=== PATIENT | male | born 1960 | race Caucasian/White ===

== ENCOUNTER 2017-06-17 14:39 | Emergency (ER) | payer OTHER, MEDICAID ==
[~2017-06-17] VITALS: Ht 172.7 cm; Wt 83.9 kg
[2017-06-17 15:44] VITALS: BP 147/81
[2017-06-17] MEDS ORDERED: HYDROcodone-ACET 10/325MG TAB PO ONE (16:15)
== END 2017-06-17 16:55 | disposition home or self-care (01) ==
LOC: ER 14:39
DX: S90.31XA Contusion of right foot, initial encounter (principal); E11.42 Type 2 diabetes mellitus with diabetic polyneuropathy; I10 Essential (primary) hypertension; G89.4 Chronic pain syndrome; Z88.6 Allergy status to analgesic agent; W04.XXXA Fall while being carried or supported by other persons, initial encounter; Y93.89 Activity, other specified; Y92.89 Other specified places as the place of occurrence of the external cause; Y99.8 Other external cause status
CPT/HCPCS: 73630

== ENCOUNTER 2017-08-04 10:01 | Emergency (ER) | payer OTHER, MEDICAID ==
[~2017-08-04] VITALS: Ht 172.7 cm; Wt 83.9 kg
[2017-08-04 10:32] VITALS: BP 151/84
[2017-08-04] MEDS ORDERED: FLUORESCEIN SOD 1 MG TEST STRIP RIGHTEYE ONE (11:00)
[2017-08-04] MEDS ORDERED: TETRACAINE HCL 0.5% OPTH(EYE) SOLN 4ML RIGHTEYE ONE (11:00)
== END 2017-08-04 12:15 | disposition home or self-care (01) ==
LOC: ER 10:01
DX: J40 Bronchitis, not specified as acute or chronic (principal); L03.211 Cellulitis of face; J44.9 Chronic obstructive pulmonary disease, unspecified; M54.9 Dorsalgia, unspecified; I10 Essential (primary) hypertension; E11.9 Type 2 diabetes mellitus without complications
CPT/HCPCS: 71046

== ENCOUNTER 2017-08-07 17:46 | Emergency (ER) | payer OTHER, MEDICAID ==
[~2017-08-07] VITALS: Ht 172.7 cm; Wt 81.6 kg
[2017-08-07 17:56] VITALS: BP 145/80
[2017-08-07 19:29] LABS: Basophils # (auto) 0 uL; Basophils % (auto) 0.8 % (0.0-2.0); Eosinophils # (auto) 0.3 uL; Eosinophils % (auto) 7.1 % (0.0-7.0); Hematocrit 40.3 % (41.0-53.0); Hemoglobin 13.5 g/dL (13.5-17.5); Lymphocytes # (auto) 1.4 uL; Lymphocytes % (auto) 33.2 % (10.0-50.0); Mean Corpuscular Hemoglobin 30.7 pg (28.0-32.0); Mean Corpuscular Hgb Conc. 33.6 g/dL (32.0-36.0); Mean Corpuscular Volume 91.6 fL (80.0-100.0); Monocytes # (auto) 0.6 uL; Monocytes % (auto) 14.7 % (0.0-12.0); Neutrophils # (auto) 1.9 uL; Neutrophils % (auto) 44.2 % (37.0-80.0); Nucleated Red Blood Cells % 0.1 %; Platelet Count (auto) 180 10^3/uL (140-450); Red Cell Distribution Width 13.5 % (11.8-14.3); White Blood Cell 4.4 10^3/uL (4.4-10.8)
[2017-08-07 19:45] LABS: Alanine Aminotransferase 33 U/L (16-61); Albumin 3.9 g/dL (3.4-5.0); Alkaline Phosphatase 74 U/L (45-117); Anion Gap 8 (5-15); Aspartate Aminotransferase 26 U/L (15-37); BUN/Creatinine Ratio 8.6; Bilirubin, Total 0.3 mg/dL (0.2-1.0); Blood Urea Nitrogen 12 mg/dL (7-18); Calcium 8.3 mg/dL (8.5-10.1); Carbon Dioxide 28 mmol/L (21-32); Chloride 100 mmol/L (98-107); GFR African American 68 mL/min; GFR Non-African American 56 mL/min; Glucose 221 mg/dL (74-106); Potassium 3.7 mmol/L (3.5-5.1); Sodium 136 mmol/L (136-145); Total Protein 7.8 g/dL (6.4-8.2)
== END 2017-08-07 21:00 | disposition left against medical advice (07) ==
LOC: ER 17:51
DX: R06.02 Shortness of breath (principal); R05 Cough; Z53.21 Procedure and treatment not carried out due to patient leaving prior to being seen by health care provider
CPT/HCPCS: 36415; 71046; 80053; 84484; 85025; 93005

== ENCOUNTER 2017-10-12 14:53 | Emergency (ER) | payer OTHER, MEDICAID ==
[~2017-10-12] VITALS: Ht 172.7 cm; Wt 83.9 kg
[2017-10-12 18:28] VITALS: BP 145/82
== END 2017-10-12 18:37 | disposition home or self-care (01) ==
LOC: ER 14:56
DX: K42.9 Umbilical hernia without obstruction or gangrene (principal); G89.29 Other chronic pain; J44.9 Chronic obstructive pulmonary disease, unspecified; E11.9 Type 2 diabetes mellitus without complications; I10 Essential (primary) hypertension; Z88.8 Allergy status to other drugs, medicaments and biological substances
CPT/HCPCS: 74176

== ENCOUNTER 2017-12-12 00:38 | Emergency (ER) | payer OTHER, MEDICAID ==
[~2017-12-12] VITALS: Ht 172.7 cm; Wt 68.0 kg
[2017-12-12 01:40] LABS: Alcohol, Urine < 3.0 mg/dL (0-5); Amphetamine Screen, Urine NEGATIVE (NEGATIVE); Barbiturate Scree,Urine NEGATIVE (NEGATIVE); Benzodiazephine Screen, Urine NEGATIVE (NEGATIVE); Cannabinoid Screen, Urine NEGATIVE (NEGATIVE); Cocaine Screen, Urine NEGATIVE (NEGATIVE); Opiate Scree,Urine POSITIVE (NEGATIVE); Phencyclidine Screen, Urine NEGATIVE (NEGATIVE)
[2017-12-12 03:10] LABS: Urine Bacteria FEW /hpf (None Seen); Urine Blood 1+ /uL (Negative); Urine Specific Gravity 1.006 (1.001-1.035); Urine WBC <1 /hpf (0 - 3)
[2017-12-12 03:55] VITALS: BP 127/78
== END 2017-12-12 05:05 | disposition home or self-care (01) ==
LOC: ER 00:38
DX: R33.9 Retention of urine, unspecified (principal); E11.9 Type 2 diabetes mellitus without complications; I10 Essential (primary) hypertension; J44.9 Chronic obstructive pulmonary disease, unspecified; Z88.8 Allergy status to other drugs, medicaments and biological substances
CPT/HCPCS: 51702; 80307; 81001

== ENCOUNTER 2018-03-11 02:16 | Inpatient (IN) | payer OTHER, MEDICAID ==
[~2018-03-11] VITALS: Ht 182.9 cm; Wt 81.6 kg
[2018-03-11 06:19] LABS: Basophils # (auto) 0.1 uL; Basophils % (auto) 0.3 % (0.0-2.0); Eosinophils # (auto) 0 uL; Eosinophils % (auto) 0.1 % (0.0-7.0); Hematocrit 48.6 % (41.0-53.0); Hemoglobin 16.6 g/dL (13.5-17.5); Lymphocytes % (auto) 6.1 % (10.0-50.0); Mean Corpuscular Hemoglobin 31.1 pg (28.0-32.0); Mean Corpuscular Hgb Conc. 34.2 g/dL (32.0-36.0); Monocytes # (auto) 0.7 uL; Monocytes % (auto) 4.1 % (0.0-12.0); Neutrophils # (auto) 15.4 uL; Neutrophils % (auto) 89.4 % (37.0-80.0); Platelet Count (auto) 241 10^3/uL (140-450); Red Blood Cells 5.34 10^6/uL (4.5-5.90); Red Cell Distribution Width 13.1 % (11.8-14.3); White Blood Cell 17.2 10^3/uL (4.4-10.8)
[2018-03-11 06:29] LABS: Alanine Aminotransferase 28 U/L (16-61); Albumin 4.5 g/dL (3.4-5.0); Amylase 48 U/L (25-115); Anion Gap 12 (5-15); Aspartate Aminotransferase 14 U/L (15-37); BUN/Creatinine Ratio 6.3; Blood Urea Nitrogen 12 mg/dL (7-18); Calcium 10.3 mg/dL (8.5-10.1); Carbon Dioxide 25 mmol/L (21-32); Chloride 100 mmol/L (98-107); GFR African American 47 mL/min; GFR Non-African American 39 mL/min; Glucose 381 mg/dL (74-106); Lipase 95 U/L (73-393); Potassium 3.8 mmol/L (3.5-5.1); Sodium 137 mmol/L (136-145)
[2018-03-11 06:34] LABS: Alkaline Phosphatase 80 U/L (45-117); Bilirubin, Total 0.7 mg/dL (0.2-1.0); Total Protein 8.7 g/dL (6.4-8.2)
[2018-03-11] MEDS ORDERED: SODIUM CHLORIDE 0.9% 1,000 ML IVB ONE (07:15)
[2018-03-11] MEDS ORDERED: PROMETHAZINE HCL 25 MG/ML 1ML IV PRN ×2 (07:15→14:00)
[2018-03-11] MEDS ORDERED: MORPHINE SULFATE 4 MG/ML SYR/VIAL IV ONE (07:15)
[2018-03-11 08:57] LABS: Urine Bacteria NONE SEEN /hpf (None Seen); Urine Blood Negative /uL (Negative); Urine Mucus FEW (None Seen); Urine WBC 2 /hpf (0 - 3)
[2018-03-11 09:01] LABS: Alcohol, Urine < 3.0 mg/dL (0-5); Amphetamine Screen, Urine NEGATIVE (NEGATIVE); Barbiturate Scree,Urine NEGATIVE (NEGATIVE); Benzodiazephine Screen, Urine NEGATIVE (NEGATIVE); Cannabinoid Screen, Urine NEGATIVE (NEGATIVE); Cocaine Screen, Urine NEGATIVE (NEGATIVE); Opiate Scree,Urine POSITIVE (NEGATIVE); Phencyclidine Screen, Urine NEGATIVE (NEGATIVE)
[2018-03-11] MEDS ORDERED: SODIUM CHLORIDE 0.9% 1,000 ML IV ONE (12:30)
[2018-03-11] MEDS ORDERED: DEXTROSE (50%) 50ML SYRG IV PRN (14:00)
[2018-03-11] MEDS ORDERED: cefTRIAXone 1GM/10ml IVPUSH 10 ML IV ONE (14:00)
[2018-03-11] MEDS ORDERED: SODIUM CHLORIDE 0.9% 2,000 ML IV ONE (14:00)
[2018-03-11] MEDS ORDERED: NITROGLYCERIN 0.4 MG SL TAB SL PRN (14:15)
[2018-03-11] MEDS ORDERED: TEMAZEPAM 15 MG CAP PO PRN (14:15)
[2018-03-11] MEDS ORDERED: ACETAMINOPHEN 325 MG TAB PO PRN (14:15)
[2018-03-11] MEDS ORDERED: MORPHINE SULF INJ 2 MG/ML SYRINGE 1ML IV PRN (14:15)
[2018-03-11] MEDS ORDERED: PANTOPRAZOLE 40 MG/10 ML VIAL IV ONE (14:15)
[2018-03-11] MEDS: CYCLOBENZAPRINE HCL 10 MG TAB PO SCH ×2 (14:32→21:53)
[2018-03-11] MEDS: MORPHINE SULF 30 mg ER tab PO SCH ×2 (14:32→21:54)
[2018-03-11] MEDS: metroNIDAZOLE 500MG/100ML 100 ML IV SCH ×2 (14:34→21:53)
[2018-03-11] MEDS: MULTIPLE VITAMIN TAB PO SCH (14:56)
[2018-03-11 15:19] LABS: Lactic Acid w/Reflex 2.7 mmol/L (0.4-2.0)
[2018-03-11] MEDS: MORPHINE SULF INJ 2 MG/ML SYRINGE 1ML IV PRN (15:27)
[2018-03-11] MEDS: SODIUM CHLORIDE 0.9% 1,000 ML IV SCH ×2 (16:52→22:29)
[2018-03-11] MEDS: ACCU-CHEK COMFORT CURVE STRIP VI SCH ×2 (17:06→22:28)
[2018-03-11] MEDS: InsuLIN REG 1unit/0.01ml Soln (100units/ml) SC SCH ×2 (17:10→22:28)
[2018-03-11] MEDS: GABAPENTIN 300 MG CAP PO SCH ×2 (18:22→21:53)
[2018-03-11 20:23] VITALS: BP 119/71
[2018-03-11] MEDS: FAMOTIDINE 20 MG TAB PO SCH (21:53)
[2018-03-12 05:10] VITALS: BP 117/71
[2018-03-12 06:32] LABS: Basophils # (auto) 0 uL; Basophils % (auto) 0.5 % (0.0-2.0); Eosinophils # (auto) 0.6 uL; Eosinophils % (auto) 6.2 % (0.0-7.0); Hematocrit 33.7 % (41.0-53.0); Lymphocytes % (auto) 29.7 % (10.0-50.0); Mean Corpuscular Hemoglobin 32.4 pg (28.0-32.0); Mean Corpuscular Hgb Conc. 35.6 g/dL (32.0-36.0); Mean Corpuscular Volume 90.9 fL (80.0-100.0); Monocytes # (auto) 0.7 uL; Monocytes % (auto) 6.6 % (0.0-12.0); Neutrophils # (auto) 5.7 uL; Nucleated Red Blood Cells % 0.1 %; Platelet Count (auto) 166 10^3/uL (140-450); Red Blood Cells 3.71 10^6/uL (4.5-5.90); Red Cell Distribution Width 13.1 % (11.8-14.3); White Blood Cell 10.1 10^3/uL (4.4-10.8)
[2018-03-12] MEDS: metroNIDAZOLE 500MG/100ML 100 ML IV SCH ×3 (06:49→22:48)
[2018-03-12] MEDS: CYCLOBENZAPRINE HCL 10 MG TAB PO SCH ×3 (06:49→22:00)
[2018-03-12] MEDS: GABAPENTIN 300 MG CAP PO SCH ×4 (06:50→22:00)
[2018-03-12] MEDS: SODIUM CHLORIDE 0.9% 1,000 ML IV SCH ×3 (06:50→23:26)
[2018-03-12] MEDS: InsuLIN REG 1unit/0.01ml Soln (100units/ml) SC SCH ×4 (06:50→23:35)
[2018-03-12] MEDS: ACCU-CHEK COMFORT CURVE STRIP VI SCH ×4 (06:51→23:36)
[2018-03-12] MEDS: HYDROcodone-ACET 10/325MG TAB PO PRN ×2 (06:52→13:52)
[2018-03-12 07:08] LABS: Albumin 2.9 g/dL (3.4-5.0); BUN/Creatinine Ratio 9.9; Bilirubin, Total 0.5 mg/dL (0.2-1.0); Calcium 7.5 mg/dL (8.5-10.1); Potassium 3.4 mmol/L (3.5-5.1); Total Protein 5.6 g/dL (6.4-8.2)
[2018-03-12] MEDS: cefTRIAXone 1GM/10ml IVPUSH 10 ML IV SCH (08:54)
[2018-03-12] MEDS: MULTIPLE VITAMIN TAB PO SCH (08:54)
[2018-03-12] MEDS: PANTOPRAZOLE 40 MG/10 ML VIAL IV SCH (08:54)
[2018-03-12] MEDS: MORPHINE SULF INJ 2 MG/ML SYRINGE 1ML IV PRN ×4 (08:54→22:48)
[2018-03-12 09:00] VITALS: BP 115/71
[2018-03-12] MEDS: MORPHINE SULF 30 mg ER tab PO SCH ×2 (10:00→22:00)
[2018-03-12] MEDS: FAMOTIDINE 20 MG TAB PO SCH ×2 (10:00→22:48)
[2018-03-12] MEDS ORDERED: MORP30TA PO (12:44)
[2018-03-12] MEDS ORDERED: CYCL7.5T15 PO (12:44)
[2018-03-12] MEDS ORDERED: GABA-339 PO (12:44)
[2018-03-12] MEDS ORDERED: HYDR-4683 PO (12:44)
[2018-03-12 13:00] VITALS: BP 130/74
[2018-03-12 15:58] LABS: INR 1.19 (0.9-1.15); Partial Thromboplastin Time 23.1 sec (23.78-33.04); Prothrombin Time 12.6 sec (9.27-12.13)
[2018-03-12] MEDS ORDERED: MAGNESIUM CITRATE SOLUTION 300 ML BTL PO ONE (17:15)
[2018-03-12 17:36] VITALS: BP 128/77
[2018-03-12] MEDS: ONDANSETRON HCL 4 MG/2 ML VIAL IV PRN ×2 (18:26→22:48)
[2018-03-12 22:30] VITALS: BP 143/80
[2018-03-13] MEDS: MORPHINE SULF INJ 2 MG/ML SYRINGE 1ML IV PRN ×4 (02:31→23:33)
[2018-03-13] MEDS: ONDANSETRON HCL 4 MG/2 ML VIAL IV PRN (02:32)
[2018-03-13 05:44] VITALS: BP 135/75
[2018-03-13] MEDS: GABAPENTIN 300 MG CAP PO SCH ×4 (06:00→23:08)
[2018-03-13] MEDS: CYCLOBENZAPRINE HCL 10 MG TAB PO SCH ×3 (06:00→23:02)
[2018-03-13] MEDS: ACCU-CHEK COMFORT CURVE STRIP VI SCH ×4 (06:39→22:00)
[2018-03-13] MEDS: metroNIDAZOLE 500MG/100ML 100 ML IV SCH ×3 (06:39→23:02)
[2018-03-13] MEDS: InsuLIN REG 1unit/0.01ml Soln (100units/ml) SC SCH ×4 (06:40→22:00)
[2018-03-13] MEDS: SODIUM CHLORIDE 0.9% 1,000 ML IV SCH ×2 (07:46→14:43)
[2018-03-13] MEDS ORDERED: MIDAZOLAM HCL 1MG/1ML-2 ML VIAL ONE (08:36)
[2018-03-13] MEDS ORDERED: PROPOFOL 10 MG/ML 20 ML IV ONE (08:37)
[2018-03-13] MEDS ORDERED: LIDOCAINE 2% (LOCAL ANESTH.) PF 5ml SDV ONE (08:38)
[2018-03-13] MEDS ORDERED: fentaNYL CITRATE 100 MCG/2 ML VL ONE (08:39)
[2018-03-13 09:00] VITALS: BP 152/81
[2018-03-13] MEDS: cefTRIAXone 1GM/10ml IVPUSH 10 ML IV SCH (10:33)
[2018-03-13] MEDS: PANTOPRAZOLE 40 MG/10 ML VIAL IV SCH (10:33)
[2018-03-13] MEDS: MULTIPLE VITAMIN TAB PO SCH (10:34)
[2018-03-13] MEDS: MORPHINE SULF 30 mg ER tab PO SCH ×2 (10:34→23:03)
[2018-03-13] MEDS: HYDROcodone-ACET 10/325MG TAB PO PRN (12:18)
[2018-03-13 13:00] VITALS: BP 131/79
[2018-03-13 18:05] VITALS: BP 112/84
[2018-03-13 22:00] VITALS: BP 122/89
[2018-03-14] MEDS: SODIUM CHLORIDE 0.9% 1,000 ML IV SCH ×2 (00:09→08:46)
[2018-03-14 04:42] VITALS: BP 124/76
[2018-03-14] MEDS: GABAPENTIN 300 MG CAP PO SCH ×2 (05:27→11:58)
[2018-03-14] MEDS: metroNIDAZOLE 500MG/100ML 100 ML IV SCH ×2 (05:28→13:26)
[2018-03-14] MEDS: CYCLOBENZAPRINE HCL 10 MG TAB PO SCH ×2 (05:28→14:17)
[2018-03-14] MEDS: MORPHINE SULF INJ 2 MG/ML SYRINGE 1ML IV PRN ×2 (05:30→12:20)
[2018-03-14] MEDS: ACCU-CHEK COMFORT CURVE STRIP VI SCH ×2 (06:28→12:19)
[2018-03-14] MEDS: InsuLIN REG 1unit/0.01ml Soln (100units/ml) SC SCH ×2 (06:30→12:20)
[2018-03-14 06:55] LABS: Basophils # (auto) 0 uL; Basophils % (auto) 0.5 % (0.0-2.0); Eosinophils # (auto) 0.7 uL; Eosinophils % (auto) 8.1 % (0.0-7.0); Hematocrit 33.4 % (41.0-53.0); Hemoglobin 11.6 g/dL (13.5-17.5); Lymphocytes # (auto) 2.6 uL; Lymphocytes % (auto) 30.5 % (10.0-50.0); Mean Corpuscular Hemoglobin 31.7 pg (28.0-32.0); Mean Corpuscular Hgb Conc. 34.6 g/dL (32.0-36.0); Mean Corpuscular Volume 91.4 fL (80.0-100.0); Monocytes # (auto) 0.6 uL; Monocytes % (auto) 7.3 % (0.0-12.0); Neutrophils # (auto) 4.6 uL; Neutrophils % (auto) 53.6 % (37.0-80.0); Nucleated Red Blood Cells % 0.1 %; Platelet Count (auto) 167 10^3/uL (140-450); Red Blood Cells 3.65 10^6/uL (4.5-5.90); Red Cell Distribution Width 13.3 % (11.8-14.3); White Blood Cell 8.7 10^3/uL (4.4-10.8)
[2018-03-14 07:35] LABS: Albumin 2.8 g/dL (3.4-5.0); BUN/Creatinine Ratio 5.6; Bilirubin, Total 0.4 mg/dL (0.2-1.0); Calcium 7.5 mg/dL (8.5-10.1); Potassium 3.3 mmol/L (3.5-5.1); Total Protein 5.3 g/dL (6.4-8.2)
[2018-03-14] MEDS: HYDROcodone-ACET 10/325MG TAB PO PRN ×2 (08:39→14:17)
[2018-03-14] MEDS: cefTRIAXone 1GM/10ml IVPUSH 10 ML IV SCH (08:39)
[2018-03-14 09:00] VITALS: BP 146/71
[2018-03-14] MEDS: PANTOPRAZOLE 40 MG/10 ML VIAL IV SCH (10:28)
[2018-03-14] MEDS: MULTIPLE VITAMIN TAB PO SCH (10:29)
[2018-03-14] MEDS: MORPHINE SULF 30 mg ER tab PO SCH (10:31)
[2018-03-14 13:00] VITALS: BP 144/86
== END 2018-03-14 16:00 | disposition home or self-care (01) | DRG 871 ==
LOC: EDBD 02:16 → ER 02:25 → TELE 02:26 → TELE-EAST 20:23
PROVIDERS: ADMIT Internal Medicine; ATTEND Family Medicine
PROC: 0DBB8ZX Excision of Ileum, Via Natural or Artificial Opening Endoscopic, Diagnostic (ICD-10-PCS; 2018-03-13)
PROC: 0DBC8ZX Excision of Ileocecal Valve, Via Natural or Artificial Opening Endoscopic, Diagnostic (ICD-10-PCS; principal; 2018-03-13 08:32)
DX: A41.9 Sepsis, unspecified organism (principal); N17.0 Acute kidney failure with tubular necrosis; A05.9 Bacterial foodborne intoxication, unspecified; J44.9 Chronic obstructive pulmonary disease, unspecified; I12.9 Hypertensive chronic kidney disease with stage 1 through stage 4 chronic kidney disease, or unspecified chronic kidney disease; E86.0 Dehydration; E11.21 Type 2 diabetes mellitus with diabetic nephropathy; E11.22 Type 2 diabetes mellitus with diabetic chronic kidney disease; E83.52 Hypercalcemia; F17.210 Nicotine dependence, cigarettes, uncomplicated; G89.4 Chronic pain syndrome; N18.2 Chronic kidney disease, stage 2 (mild); I25.10 Atherosclerotic heart disease of native coronary artery without angina pectoris; K21.9 Gastro-esophageal reflux disease without esophagitis; Z82.49 Family history of ischemic heart disease and other diseases of the circulatory system; Z83.3 Family history of diabetes mellitus; Z91.14 Patient's other noncompliance with medication regimen; Z88.8 Allergy status to other drugs, medicaments and biological substances
CPT/HCPCS: 36415; 45380; 71045; 74176; 76705; 76870; 80053; 80307; 81001; 82150; 82962; 83036; 83605; 83690; 83735; 84443; 84484; 85025; 85610; 85730; 87040; 87045; 87493; 87899; 93005; 96361; 96365; 96366; 96375; 96376; C9113; J0696; J1815; J2001; J2250; J2405; J2704; J3490

== ENCOUNTER 2018-03-18 12:38 | Inpatient (IN) | payer OTHER, MEDICAID ==
[~2018-03-18] VITALS: Ht 172.7 cm; Wt 80.6 kg
[~2018-03-18 12:38] MED LIST: CYCL7.5T15 PO; GABA-339 PO; HYDR-4683 PO; MORP30TA PO
[2018-03-18] MEDS ORDERED: SODIUM CHLORIDE 0.9% 1,000 ML IV ONE (14:15)
[2018-03-18] MEDS ORDERED: PROMETHAZINE HCL 25 MG/ML 1ML IV PRN (14:15)
[2018-03-18 14:21] LABS: Basophils # (auto) 0.1 uL; Basophils % (auto) 0.6 % (0.0-2.0); Eosinophils # (auto) 0.1 uL; Eosinophils % (auto) 0.5 % (0.0-7.0); Hematocrit 43.8 % (41.0-53.0); Hemoglobin 15.1 g/dL (13.5-17.5); Lymphocytes # (auto) 1.5 uL; Mean Corpuscular Hemoglobin 31.5 pg (28.0-32.0); Mean Corpuscular Hgb Conc. 34.5 g/dL (32.0-36.0); Mean Corpuscular Volume 91.2 fL (80.0-100.0); Monocytes # (auto) 0.7 uL; Monocytes % (auto) 5.8 % (0.0-12.0); Neutrophils # (auto) 9.2 uL; Neutrophils % (auto) 80.1 % (37.0-80.0); Platelet Count (auto) 235 10^3/uL (140-450); Red Blood Cells 4.81 10^6/uL (4.5-5.90); Red Cell Distribution Width 13.4 % (11.8-14.3); White Blood Cell 11.5 10^3/uL (4.4-10.8)
[2018-03-18 14:46] LABS: Amylase 63 U/L (25-115); Lipase 125 U/L (73-393)
[2018-03-18 15:06] LABS: Alanine Aminotransferase 36 U/L (16-61); Albumin 3.7 g/dL (3.4-5.0); Alkaline Phosphatase 54 U/L (45-117); Anion Gap 4 (5-15); Aspartate Aminotransferase 18 U/L (15-37); BUN/Creatinine Ratio 7.8; Bilirubin, Total 0.5 mg/dL (0.2-1.0); Blood Urea Nitrogen 8 mg/dL (7-18); Calcium 8.7 mg/dL (8.5-10.1); Carbon Dioxide 25 mmol/L (21-32); Chloride 107 mmol/L (98-107); GFR African American 97 mL/min; GFR Non-African American 80 mL/min; Glucose 195 mg/dL (74-106); Magnesium 2.1 mg/dL (1.6-2.6); Potassium 3.8 mmol/L (3.5-5.1); Sodium 136 mmol/L (136-145)
[2018-03-18] MEDS ORDERED: metroNIDAZOLE 500MG/100ML 100 ML IV ONE (15:30)
[2018-03-18] MEDS ORDERED: ONDANSETRON HCL 4 MG/2 ML VIAL IV ONE ×2 (15:30→18:15)
[2018-03-18] MEDS ORDERED: MORPHINE SULF INJ 2 MG/ML SYRINGE 1ML ONE (15:30)
[2018-03-18] MEDS ORDERED: MORPHINE SULF INJ 2 MG/ML SYRINGE 1ML IV ONE ×2 (15:30→18:15)
[2018-03-18] MEDS ORDERED: ONDANSETRON HCL 4 MG/2 ML VIAL ONE (15:31)
[2018-03-18] MEDS ORDERED: SODIUM CHLORIDE 0.9% 2,000 ML IV ONE (18:15)
[2018-03-19] MEDS ORDERED: ALBUTEROL SULF 2.5 MG/0.5ML(0.5%) NEB SOLN NEB PRN (00:15)
[2018-03-19] MEDS ORDERED: IPRATROPIUM BROM 0.5 MG/2.5ML INH SOL NEB PRN (00:15)
[2018-03-19] MEDS ORDERED: DEXTROSE (50%) 50ML SYRG IV PRN (00:15)
[2018-03-19] MEDS ORDERED: SOD CHL 0.45% 1,000 ML IV ONE (00:15)
[2018-03-19] MEDS: MORPHINE SULF INJ 2 MG/ML SYRINGE 1ML IV PRN ×5 (00:46→20:30)
[2018-03-19] MEDS: ONDANSETRON HCL 4 MG/2 ML VIAL IV PRN ×3 (00:46→18:16)
[2018-03-19 00:58] VITALS: BP 149/88
[2018-03-19 02:00] VITALS: BP 144/80
[2018-03-19 04:53] VITALS: BP 148/86
[2018-03-19] MEDS: InsuLIN REG 1unit/0.01ml Soln (100units/ml) SC SCH ×3 (05:02→17:44)
[2018-03-19] MEDS: ACCU-CHEK COMFORT CURVE STRIP VI SCH ×3 (05:02→17:45)
[2018-03-19] MEDS: metroNIDAZOLE 500MG/100ML 100 ML IV SCH ×2 (05:02→14:32)
[2018-03-19 06:32] LABS: Basophils # (auto) 0 uL; Basophils % (auto) 0.3 % (0.0-2.0); Eosinophils # (auto) 0.5 uL; Hematocrit 37.1 % (41.0-53.0); Hemoglobin 12.7 g/dL (13.5-17.5); Lymphocytes % (auto) 20.6 % (10.0-50.0); Mean Corpuscular Hemoglobin 31.5 pg (28.0-32.0); Mean Corpuscular Hgb Conc. 34.1 g/dL (32.0-36.0); Mean Corpuscular Volume 92.2 fL (80.0-100.0); Monocytes # (auto) 0.8 uL; Neutrophils # (auto) 6.4 uL; Neutrophils % (auto) 66.1 % (37.0-80.0); Platelet Count (auto) 210 10^3/uL (140-450); Red Blood Cells 4.03 10^6/uL (4.5-5.90); Red Cell Distribution Width 13.3 % (11.8-14.3); White Blood Cell 9.7 10^3/uL (4.4-10.8)
[2018-03-19 06:37] LABS: INR 1.21 (0.9-1.15); Prothrombin Time 12.8 sec (9.27-12.13)
[2018-03-19 06:58] LABS: Albumin 3.1 g/dL (3.4-5.0); BUN/Creatinine Ratio 9.5; Bilirubin, Total 0.5 mg/dL (0.2-1.0); Calcium 7.7 mg/dL (8.5-10.1); Potassium 3.6 mmol/L (3.5-5.1); Total Protein 5.8 g/dL (6.4-8.2)
[2018-03-19 07:55] VITALS: BP 150/81
[2018-03-19] MEDS ORDERED: CIPROFLOXACIN 400MG/200ML 200 ML IV SCH (10:00)
[2018-03-19 11:05] LABS: Urine Bacteria NONE SEEN /hpf (None Seen); Urine Blood Negative /uL (Negative); Urine Specific Gravity 1.015 (1.001-1.035); Urine WBC 1 /hpf (0 - 3)
[2018-03-19 12:21] VITALS: BP 136/82
[2018-03-19 17:06] VITALS: BP 143/83
[2018-03-19] MEDS ORDERED: HYDROcodone-ACET 10/325MG TAB PO PRN (18:15)
== END 2018-03-19 21:07 | disposition short-term general hospital (02) | DRG 392 ==
LOC: EDBD 12:38 → ER 12:39 → EAST 12:40
PROVIDERS: ADMIT Internal Medicine; ATTEND Internal Medicine
DX: K52.9 Noninfective gastroenteritis and colitis, unspecified (principal); K50.90 Crohn's disease, unspecified, without complications; I10 Essential (primary) hypertension; J44.9 Chronic obstructive pulmonary disease, unspecified; G89.4 Chronic pain syndrome; F41.9 Anxiety disorder, unspecified; F17.210 Nicotine dependence, cigarettes, uncomplicated; E66.9 Obesity, unspecified; K42.9 Umbilical hernia without obstruction or gangrene; E11.9 Type 2 diabetes mellitus without complications; M54.9 Dorsalgia, unspecified; Z82.49 Family history of ischemic heart disease and other diseases of the circulatory system; Z91.19 Patient's noncompliance with other medical treatment and regimen; Z88.8 Allergy status to other drugs, medicaments and biological substances; Z68.27 Body mass index [BMI] 27.0-27.9, adult
CPT/HCPCS: 36415; 71045; 74176; 80053; 81001; 82150; 82962; 83036; 83690; 83735; 84484; 85025; 85610; 85652; 86141; 86256; 86671; 87081; 93005; 94761; 96361; 96365; 96375; J2405; J3490

== ENCOUNTER 2018-08-05 14:33 | Emergency (ER) | payer OTHER, MEDICAID ==
[~2018-08-05] VITALS: Ht 175.3 cm; Wt 83.9 kg
[2018-08-05 15:42] LABS: Basophils # (auto) 0 uL; Basophils % (auto) 0.5 % (0.0-2.0); Eosinophils # (auto) 0.1 uL; Eosinophils % (auto) 0.7 % (0.0-7.0); Hematocrit 43.5 % (41.0-53.0); Hemoglobin 15.2 g/dL (13.5-17.5); Lymphocytes # (auto) 2.2 uL; Lymphocytes % (auto) 24.8 % (10.0-50.0); Mean Corpuscular Hemoglobin 31.6 pg (28.0-32.0); Mean Corpuscular Hgb Conc. 34.9 g/dL (32.0-36.0); Mean Corpuscular Volume 90.5 fL (80.0-100.0); Monocytes # (auto) 0.6 uL; Monocytes % (auto) 6.5 % (0.0-12.0); Neutrophils % (auto) 67.5 % (37.0-80.0); Platelet Count (auto) 239 10^3/uL (140-450); Red Blood Cells 4.81 10^6/uL (4.5-5.90); Red Cell Distribution Width 12.8 % (11.8-14.3); White Blood Cell 8.9 10^3/uL (4.4-10.8)
[2018-08-05 15:54] LABS: Chloride 104 mmol/L (98-107); Potassium 3.8 mmol/L (3.5-5.1); Sodium 138 mmol/L (136-145)
[2018-08-05 16:03] LABS: Alanine Aminotransferase 21 U/L (16-61); Albumin 4.2 g/dL (3.4-5.0); Alkaline Phosphatase 78 U/L (45-117); Amylase 42 U/L (25-115); Anion Gap 9 (5-15); Aspartate Aminotransferase 9 U/L (15-37); Bilirubin, Total 0.5 mg/dL (0.2-1.0); Blood Urea Nitrogen 9 mg/dL (7-18); Calcium 9.1 mg/dL (8.5-10.1); Carbon Dioxide 25 mmol/L (21-32); GFR African American 87 mL/min; GFR Non-African American 72 mL/min; Glucose 258 mg/dL (74-106); Lipase 56 U/L (73-393); Total Protein 8.1 g/dL (6.4-8.2)
[2018-08-06] MEDS ORDERED: MORPHINE SULFATE 4 MG/ML SYR/VIAL IV ONE (03:30)
[2018-08-06] MEDS ORDERED: ONDANSETRON HCL 4 MG/2 ML VIAL IV ONE (03:30)
[2018-08-06 03:47] VITALS: BP 137/94
[2018-08-06 05:32] LABS: Urine Bacteria FEW /hpf (None Seen); Urine Blood Negative /uL (Negative); Urine Specific Gravity 1.021 (1.001-1.035); Urine WBC 1 /hpf (0 - 3)
== END 2018-08-06 04:47 | disposition home or self-care (01) ==
LOC: EDBD 14:33 → ER 14:35
DX: K52.9 Noninfective gastroenteritis and colitis, unspecified (principal); J44.9 Chronic obstructive pulmonary disease, unspecified; E11.9 Type 2 diabetes mellitus without complications; I10 Essential (primary) hypertension; F17.210 Nicotine dependence, cigarettes, uncomplicated; Z88.6 Allergy status to analgesic agent; Z79.899 Other long term (current) drug therapy
CPT/HCPCS: 36415; 74176; 80053; 81001; 82150; 83690; 84484; 85025; 93005; 96374; 96375; 99284; J2270; J2405

== ENCOUNTER 2019-10-07 02:50 | Inpatient (IN) | payer OTHER, MEDICAID ==
[~2019-10-07] VITALS: Ht 172.7 cm; Wt 78.2 kg
[~2019-10-07 02:50] MED LIST changes: -HYDR-4683 PO; +HYDR-4833 PO
[2019-10-07] MEDS ORDERED: ONDANSETRON HCL 4 MG/2 ML VIAL ONE (03:04)
[2019-10-07] MEDS ORDERED: MORPHINE SULFATE 4 MG/ML SYR/VIAL ONE (03:04)
[2019-10-07] MEDS ORDERED: MORPHINE SULFATE 4 MG/ML SYR/VIAL IV ONE ×3 (03:15→03:30)
[2019-10-07] MEDS ORDERED: ASPirin 81 mg TAB PO ONE ×2 (03:15→03:30)
[2019-10-07] MEDS ORDERED: ONDANSETRON HCL 4 MG/2 ML VIAL IV ONE (03:15)
[2019-10-07 03:24] LABS: Basophils # (auto) 0.1 10 ^3/uL (0-0.2); Eosinophils # (auto) 0.5 10 ^3/uL (0-0.8); Eosinophils % (auto) 7.8 % (0.0-7.0); Hematocrit 37.8 % (41.0-53.0); Lymphocytes # (auto) 2.2 10 ^3/uL (0.4-5.4); Lymphocytes % (auto) 33.1 % (10.0-50.0); Mean Corpuscular Hemoglobin 31.4 pg (28.0-32.0); Mean Corpuscular Hgb Conc. 34.4 g/dL (32.0-36.0); Mean Corpuscular Volume 91.3 fL (80.0-100.0); Monocytes # (auto) 0.6 10 ^3/uL (0-1.3); Monocytes % (auto) 8.7 % (0.0-12.0); Neutrophils # (auto) 3.3 10 ^3/uL (1.6-8.6); Neutrophils % (auto) 49.4 % (37.0-80.0); Platelet Count (auto) 204 10^3/uL (140-450); Red Blood Cells 4.14 10^6/uL (4.5-5.90); Red Cell Distribution Width 13.2 % (11.8-14.3); White Blood Cell 6.7 10^3/uL (4.4-10.8)
[2019-10-07] MEDS ORDERED: ATORVASTATIN 20 MG TAB PO ONE (03:30)
[2019-10-07] MEDS ORDERED: METOPROLOL TARTRATE 1MG/1ML-5ML VIAL IV ONE (03:30)
[2019-10-07] MEDS ORDERED: HEPARIN 1,000 UNITS/ml 1ML VIAL IV ONE (03:30)
[2019-10-07 03:34] LABS: Urine WBC None Seen /hpf (0 - 3)
[2019-10-07 03:43] LABS: Alanine Aminotransferase 20 U/L (16-61); Albumin 3.6 g/dL (3.4-5.0); Anion Gap 6 (5-15); Blood Urea Nitrogen 10 mg/dL (7-18); Calcium 8.4 mg/dL (8.5-10.1); Carbon Dioxide 28 mmol/L (21-32); Chloride 100 mmol/L (98-107); Potassium 4.1 mmol/L (3.5-5.1); Sodium 134 mmol/L (136-145)
[2019-10-07 03:44] LABS: Urine Bacteria NONE SEEN /hpf (None Seen); Urine Blood Negative /uL (Negative); Urine Specific Gravity 1.016 (1.001-1.035)
[2019-10-07 03:48] LABS: Alkaline Phosphatase 72 U/L (45-117); Aspartate Aminotransferase 13 U/L (15-37); BUN/Creatinine Ratio 8.7; Bilirubin, Total 0.2 mg/dL (0.2-1.0); GFR African American 84 mL/min; GFR Non-African American 69 mL/min; Total Protein 6.9 g/dL (6.4-8.2)
[2019-10-07 03:56] LABS: Glucose 406 mg/dL (74-106)
[2019-10-07] MEDS ORDERED: HEPARIN SODIUM (PORCINE) 5000 UNITS/ML 1ML VIAL ONE (04:07)
[2019-10-07] MEDS ORDERED: CLOPIDOGREL BISULFATE 75 MG TAB PO ONE ×3 (04:15→08:30)
[2019-10-07 04:16] LABS: INR 1.08 (0.9-1.15); Partial Thromboplastin Time 25.3 sec (23.64-32.05)
[2019-10-07] MEDS ORDERED: SODIUM CHLORIDE 0.9% 500 ML IV ONE (04:30)
[2019-10-07] MEDS ORDERED: InsuLIN REG 1unit/0.01ml Soln (100units/ml) IV ONE (04:30)
[2019-10-07 05:14] LABS: Amphetamine Screen, Urine NEGATIVE (NEGATIVE); Barbiturate Scree,Urine NEGATIVE (NEGATIVE); Benzodiazephine Screen, Urine NEGATIVE (NEGATIVE); Cannabinoid Screen, Urine NEGATIVE (NEGATIVE); Cocaine Screen, Urine NEGATIVE (NEGATIVE); Opiate Scree,Urine POSITIVE (NEGATIVE); Phencyclidine Screen, Urine NEGATIVE (NEGATIVE)
[2019-10-07 05:16] LABS: Alcohol, Urine < 3.0 mg/dL (0-5)
[2019-10-07] MEDS ORDERED: TEMAZEPAM 15 MG CAP PO PRN (07:30)
[2019-10-07] MEDS ORDERED: NITROGLYCERIN 0.4 MG SL TAB SL PRN (07:30)
[2019-10-07] MEDS ORDERED: ACETAMINOPHEN 325 MG TAB PO PRN (07:30)
[2019-10-07] MEDS ORDERED: ONDANSETRON HCL 4 MG/2 ML VIAL IV PRN (07:30)
[2019-10-07] MEDS ORDERED: DEXTROSE (50%) 50ML SYRG IV PRN ×2 (07:30→15:45)
[2019-10-07] MEDS ORDERED: CLOPIDOGREL 300 MG TAB PO ONE (08:30)
[2019-10-07] MEDS: MORPHINE SULF INJ 2 MG/ML SYRINGE 1ML IV PRN ×3 (08:30→20:32)
[2019-10-07 08:35] LABS: Magnesium 2.2 mg/dL (1.6-2.6)
[2019-10-07] MEDS ORDERED: ADENOSINE 72 MG in GIVE UN-DILUTED 0 ML IV ONE (09:00)
[2019-10-07] MEDS ORDERED: HEPARIN DRIP/D5W 100UNITS/ML 250 ML IV SCH ×2 (09:35→18:51)
[2019-10-07] MEDS: FAMOTIDINE 20 MG TAB PO SCH ×2 (10:31→22:45)
--- NOTE | 2019-10-07 11:25 | NUR ---
Patient arrived Patient arrived to unit.
--- NOTE | 2019-10-07 11:50 | NUR ---
Chest Pain Patient complaint of chest pain. Chest pain protocol initiated, MD aware.
--- NOTE | 2019-10-07 11:54 | NUR ---
Spoke with Dr. Hong, patient scheduled to have left heart catheterization on 10/08/2019.
[2019-10-07] MEDS ORDERED: METOPROLOL TARTRATE 25 MG TAB PO ONE (12:00)
[2019-10-07] MEDS ORDERED: LISINOPRIL 20 MG TAB PO ONE (12:00)
[2019-10-07] MEDS ORDERED: InsuLIN REG 1unit/0.01ml Soln (100units/ml) SC SCH (12:00)
[2019-10-07] MEDS: HYDROcodone-ACET 5/325MG TAB PO PRN ×2 (12:16→22:46)
--- NOTE | 2019-10-07 12:30 | NUR ---
at bedside Dr. Ferrera at bedside discussing plan of care with patient.
--- NOTE | 2019-10-07 12:40 | NUR ---
New orders received, will carry out
[2019-10-07] MEDS: ACCU-CHEK COMFORT CURVE STRIP VI SCH ×5 (12:52→23:14)
[2019-10-07 13:00] VITALS: BP 142/88
--- NOTE | 2019-10-07 13:00 | NUR ---
[facility] Spoke with Lala regarding putting the patient back to in network. Asked to speak with psychiatric social worker supervisor, information provided.
[2019-10-07 13:52] VITALS: BP 142/88
--- NOTE | 2019-10-07 13:57 | NUR ---
MD watts Spoke with Dr. Hong regarding Heparin drip; heparin administration to continue as ordered, plavix and aspirin orders to be restarted after patient has procedure.
--- NOTE | 2019-10-07 15:00 | NUR ---
Heparin Protocol Per Heparin protocol, new orders added for lab draw at 1535.
--- NOTE | 2019-10-07 15:15 | NUR ---
POM Patient medication sent to pharmacy. Patient sticker added to chart, POM bracelet given to patient.
[2019-10-07] MEDS ORDERED: OPTISON 3ml Vial for INJ IV ONE (15:18)
[2019-10-07 15:58] LABS: INR 1.15 (0.9-1.15)
[2019-10-07 16:42] VITALS: BP 140/82
--- NOTE | 2019-10-07 16:49 | NUR ---
[facility] Spoke with Lala at [facility]; requesting EKG and face sheet to transfer patient to [facility].
--- NOTE | 2019-10-07 16:56 | NUR ---
Fax Face sheet and EKG faxed to Lala at [facility].
--- NOTE | 2019-10-07 17:10 | NUR ---
[facility] Spoke with Lala, patient to stay at [facility] for LHC because no bed is currently available at [facility].
[2019-10-07] MEDS ORDERED: HEPARIN SODIUM (PORCINE) 5000 UNITS/ML 1ML VIAL IV ONE ×2 (18:00→19:00)
--- NOTE | 2019-10-07 18:45 | NUR ---
Chest Pain Protocol Chest pain protocol initiated, patient complained of 10/10 chest pain after eating dinner. Patient crying, grimacing and guarding. EKG obtained, MD notified. Vital signs: BP 149/82, HR 85, SpO2 98%, RR 26.
--- NOTE | 2019-10-07 18:50 | NUR ---
MD Spoke with Dr. Yadav regarding heparin protocol, MD notified that heparin was not started at correct rate. Per MD order, give 5000 unit bolus and restart heparin protocol with starting rate per protocol. Pharmacy informed, orders will be carried out will continue to monitor.
--- NOTE | 2019-10-07 19:00 | NUR ---
Re: Chest Pain Nitroglycerin obtained for chest pain protocol. Patient is currently resting in bed with eyes closed, respirations are even and unlabored, no signs of distress at this time, HR is SR at 73, RR 16. Nitroglycerin held, will continue to monitor.
[2019-10-07] MEDS: InsuLIN REG 1unit/0.01ml Soln (100units/ml) SC SCH ×2 (19:02→22:56)
--- NOTE | 2019-10-07 19:50 | NUR ---
Bedside report Gave bedside report with NOC RN, patient declines nitro.
--- NOTE | 2019-10-07 19:54 | NUR ---
EKG Sign off of EKG endorsed to director vaccine.
[2019-10-07 20:00] VITALS: BP 140/78
--- NOTE | 2019-10-07 20:36 | NUR ---
Informed hospitalist Gregory of increase in troponin, medicated for pain with morphine no new orders as pt is already having left cath tomorrow
[2019-10-07 21:15] VITALS: BP 140/78
[2019-10-07 22:00] VITALS: BP 140/78
[2019-10-07] MEDS ORDERED: INSULIN LANTUS (GLARGINE) 1 /0.01ml (100units/ml) SC SCH (22:00)
[2019-10-07] MEDS: ATORVASTATIN 20 MG TAB PO SCH (22:45)
[2019-10-07] MEDS: METOPROLOL TARTRATE 25 MG TAB PO SCH (22:46)
[2019-10-07] MEDS: INSULIN LANTUS (GLARGINE) 1 /0.01ml (100units/ml) SC SCH (23:01)
[2019-10-08] MEDS ORDERED: SODIUM CHLORIDE 0.9% 1,000 ML IV SCH (00:01)
[2019-10-08 00:25] LABS: INR 1.11 (0.9-1.15); Partial Thromboplastin Time 45.3 sec (23.64-32.05)
--- NOTE | 2019-10-08 02:00 | NUR ---
IV dislodged by pt accidentally, will attempt new IV
--- NOTE | 2019-10-08 02:30 | NUR ---
IV insertion IV access obtained, via clean sterile technique by inserting 22 gauge catheter at right forearm after 2 attempt(s). IV secured properly. No trauma to site. Patient tolerated well. NOTE:
[2019-10-08] MEDS: MORPHINE SULF INJ 2 MG/ML SYRINGE 1ML IV PRN (02:49)
--- NOTE | 2019-10-08 02:49 | NUR ---
Pt medicated for pain, will continue to monitor
[2019-10-08 05:00] VITALS: BP 133/79
[2019-10-08] MEDS: ACCU-CHEK COMFORT CURVE STRIP VI SCH ×4 (06:00→17:43)
[2019-10-08 06:32] LABS: Basophils # (auto) 0.1 10 ^3/uL (0-0.2); Basophils % (auto) 0.7 % (0.0-2.0); Eosinophils # (auto) 0.3 10 ^3/uL (0-0.8); Eosinophils % (auto) 2.6 % (0.0-7.0); Hematocrit 41.7 % (41.0-53.0); Hemoglobin 14.3 g/dL (13.5-17.5); Lymphocytes # (auto) 2.3 10 ^3/uL (0.4-5.4); Lymphocytes % (auto) 21.7 % (10.0-50.0); Mean Corpuscular Hemoglobin 31.6 pg (28.0-32.0); Mean Corpuscular Hgb Conc. 34.4 g/dL (32.0-36.0); Mean Corpuscular Volume 91.7 fL (80.0-100.0); Monocytes # (auto) 0.7 10 ^3/uL (0-1.3); Monocytes % (auto) 6.7 % (0.0-12.0); Neutrophils # (auto) 7.4 10 ^3/uL (1.6-8.6); Neutrophils % (auto) 68.3 % (37.0-80.0); Platelet Count (auto) 199 10^3/uL (140-450); Red Blood Cells 4.55 10^6/uL (4.5-5.90); Red Cell Distribution Width 13.5 % (11.8-14.3); White Blood Cell 10.8 10^3/uL (4.4-10.8)
[2019-10-08 06:47] LABS: BUN/Creatinine Ratio 10.2; Calcium 9.1 mg/dL (8.5-10.1); Potassium 3.9 mmol/L (3.5-5.1)
[2019-10-08] MEDS: HYDROcodone-ACET 5/325MG TAB PO PRN ×3 (06:50→20:46)
[2019-10-08] MEDS: INSULIN LANTUS (GLARGINE) 1 /0.01ml (100units/ml) SC SCH ×3 (07:00→22:00)
--- NOTE | 2019-10-08 07:04 | NUR ---
called again to report critical troponin level
--- NOTE | 2019-10-08 07:17 | NUR ---
Dr. Grover paged for critical troponin 9.42 message left on exchange
--- NOTE | 2019-10-08 07:29 | NUR ---
Spoke to hospitalist no new orders given, pt to have left heart cath
--- NOTE | 2019-10-08 07:38 | NUR ---
Spoke with Dr. Grover regarding heparin drip and patient going to greens laborer today for left heart cath. He stated to leave patient on heparin drip at this time.
--- NOTE | 2019-10-08 07:40 | NUR ---
Also notified Dr. Grover of critical troponin of 9.42
[2019-10-08 08:00] VITALS: BP 131/84
[2019-10-08] MEDS ORDERED: LIDOCAINE 2%HCL (LOCAL ANESTH.) INJ 20ML MDV ONE ×2 (08:15→11:40)
[2019-10-08] MEDS ORDERED: IODIXANOL 320MG/ML 100ML BTL IV ONE (08:15)
[2019-10-08] MEDS ORDERED: HEPARIN SODIUM (PORCINE) 5000 UNITS/ML 1ML VIAL SC ONE (08:45)
[2019-10-08] MEDS: InsuLIN REG 1unit/0.01ml Soln (100units/ml) SC SCH ×3 (08:53→17:45)
[2019-10-08 09:00] VITALS: BP 131/84
--- NOTE | 2019-10-08 09:02 | NUR ---
Bolus Informed Dr. Grover of subtherapeautic level ptt, after late administration of 0100 2ml increase, adjusted per protocol, bolus was administered and set to 13ml/hr. Informed to continue protocol no new orders
--- NOTE | 2019-10-08 09:30 | NUR ---
Took patient down to cathead operator for left heart cath.
[2019-10-08] MEDS ORDERED: IOHEXOL 350 MG/ML 100ML IJ ONE (11:40)
[2019-10-08] MEDS ORDERED: fentaNYL CITRATE 100 MCG/2 ML VL ONE (11:51)
[2019-10-08] MEDS ORDERED: MIDAZOLAM HCL 1MG/1ML-2 ML VIAL ONE (11:51)
[2019-10-08] MEDS ORDERED: ANGIOMAX 250 MG VIAL IV ONE (11:51)
[2019-10-08] MEDS ORDERED: VERAPAMIL 2.5MG/ML INJ 2ML VIAL IV ONE (11:51)
[2019-10-08] MEDS ORDERED: HEPARIN SODIUM (PORCINE) 5000 UNITS/ML 1ML VIAL ONE ×2 (11:51→12:17)
[2019-10-08] MEDS ORDERED: SODIUM CHL 0.9% 0 ML ONE (11:52)
[2019-10-08] MEDS ORDERED: SODIUM CHL 0.9% 50 ML ONE (11:52)
[2019-10-08] MEDS ORDERED: NITROGLYCERIN 5MG/ML 10ML VIAL IV ONE (11:52)
--- NOTE | 2019-10-08 12:17 | NUR ---
Dr. Ferrera discussed plan of care with me as patient is still down to dental laboratory manager.
[2019-10-08] MEDS ORDERED: ASPirin 325 MG TAB ONE (12:31)
[2019-10-08] MEDS ORDERED: TICAGRELOR 90 MG TAB ONE (12:31)
[2019-10-08] MEDS ORDERED: diphenhdrAMINE HCL 50 MG/1 ML VL IV ONE (13:00)
--- NOTE | 2019-10-08 13:30 | NUR ---
Patient in room from [facility]. Manju SO brought up patient and gave update. Will remove air from vasc band per protocol.
[2019-10-08 13:33] VITALS: BP 147/87
--- NOTE | 2019-10-08 14:51 | NUR ---
Spoke with and gave update to Lala rn case manager hospice from [facility] regarding patients care here. She stated she needs to speak with our rn case manager hospice to see if we have any in network providers here
[2019-10-08] MEDS: METOPROLOL TARTRATE 25 MG TAB PO SCH ×2 (16:05→22:51)
[2019-10-08] MEDS: FAMOTIDINE 20 MG TAB PO SCH ×2 (16:05→22:47)
[2019-10-08] MEDS: LISINOPRIL 20 MG TAB PO SCH (16:06)
[2019-10-08 17:00] VITALS: BP 157/84
--- NOTE | 2019-10-08 19:36 | NUR ---
Opening Shift Note Assumed care of patient, awake and alert x 4. No S/S of distress/SOB or pain. Bed is in lowest position and locked. Call light within reach. Board updated. Tele box number matches monitor and leads are in correct placement. Instructed on POC and to call for assist PRN, will continue to monitor for changes Q1hr and PRN.
--- NOTE | 2019-10-08 19:50 | NUR ---
Endorsed care to SARAY Guzman. Addendum: 10/08/19 at 2205 by AMERICO GUALLPA RN Wrong time. Disregard
[2019-10-08 21:00] VITALS: BP 135/80
--- NOTE | 2019-10-08 21:50 | NUR ---
Endorsed care to SARAY Ceballos.
[2019-10-08] MEDS: ATORVASTATIN 20 MG TAB PO SCH (22:47)
[2019-10-08] MEDS: TICAGRELOR 90 MG TAB PO SCH (23:34)
[2019-10-09] VITALS (7 sets, daily range): BP systolic 100–139; BP diastolic 71–82
[2019-10-09] MEDS ORDERED: MORPHINE SULF 30 mg ER tab PO PRN (00:45)
--- NOTE | 2019-10-09 00:45 | NUR ---
Patient complains of chronic back pain 9/10 on pain scale 1-10. Patient states he takes Morphine 30 mg at home twice daily. Dr. Rodriguez notified orders for Morphine obtained.
--- NOTE | 2019-10-09 01:05 | NUR ---
Patient medicated with MS Contin 30 mg orally as ordered.
--- NOTE | 2019-10-09 02:05 | NUR ---
Patient resting comfortably in bed. No distress noted.
[2019-10-09] MEDS: InsuLIN REG 1unit/0.01ml Soln (100units/ml) SC SCH ×3 (06:00→12:09)
[2019-10-09] MEDS: ACCU-CHEK COMFORT CURVE STRIP VI SCH ×3 (06:03→12:04)
--- NOTE | 2019-10-09 06:50 | NUR ---
Patient complains of pain to his hands and lower back pain 7. Patient's status endorsed to AM RN.
[2019-10-09] MEDS: HYDROcodone-ACET 5/325MG TAB PO PRN ×2 (06:55→10:55)
[2019-10-09] MEDS: INSULIN LANTUS (GLARGINE) 1 /0.01ml (100units/ml) SC SCH (07:16)
[2019-10-09] MEDS ORDERED: ASPirin 81 mg TAB PO SCH (10:00)
[2019-10-09] MEDS: FAMOTIDINE 20 MG TAB PO SCH (10:38)
[2019-10-09] MEDS: LISINOPRIL 20 MG TAB PO SCH (10:39)
[2019-10-09] MEDS: METOPROLOL TARTRATE 25 MG TAB PO SCH (10:39)
[2019-10-09] MEDS: TICAGRELOR 90 MG TAB PO SCH (10:55)
--- NOTE | 2019-10-09 13:25 | NUR ---
Discharge instructions given as ordered. Encourage to follow up with PMD as instructed. All questions and concerns addressed. Patient verbalized understanding. Medication reconciliation form completed and copy given to patient. Home medications held in Pharmacy returned to patient. IV removed with catheter intact, pressure dressing applied. Telemetry unit returned to ICU. Patient REFUSED wheelchair, WALK TO ELEVATOR with all personal belongings, accompanied by staff. No distress noted at time of departure.
[2019-10-09] MEDS ORDERED: POM (23:10)
== END 2019-10-09 13:20 | disposition home or self-care (01) | DRG 247 ==
LOC: ER 02:57 → TELE 02:58 → TELE-EAST 12:50
PROVIDERS: ADMIT Nurse Practitioner; ATTEND Internal Medicine Nephrology
PROC: 027135Z Dilation of Coronary Artery, Two Arteries with Two Drug-eluting Intraluminal Devices, Percutaneous Approach (ICD-10-PCS; principal; 2019-10-08)
PROC: 4A023N7 Measurement of Cardiac Sampling and Pressure, Left Heart, Percutaneous Approach (ICD-10-PCS; 2019-10-08)
PROC: B211YZZ Fluoroscopy of Multiple Coronary Arteries using Other Contrast (ICD-10-PCS; 2019-10-08)
PROC: B215YZZ Fluoroscopy of Left Heart using Other Contrast (ICD-10-PCS; 2019-10-08)
DX: I21.4 Non-ST elevation (NSTEMI) myocardial infarction (principal); F11.20 Opioid dependence, uncomplicated; I50.22 Chronic systolic (congestive) heart failure; I25.10 Atherosclerotic heart disease of native coronary artery without angina pectoris; G89.4 Chronic pain syndrome; R79.89 Other specified abnormal findings of blood chemistry; E11.9 Type 2 diabetes mellitus without complications; J44.9 Chronic obstructive pulmonary disease, unspecified; F41.9 Anxiety disorder, unspecified; E66.9 Obesity, unspecified; I11.0 Hypertensive heart disease with heart failure; Z79.4 Long term (current) use of insulin; Z91.14 Patient's other noncompliance with medication regimen; Z91.19 Patient's noncompliance with other medical treatment and regimen; Z88.5 Allergy status to narcotic agent; Z79.899 Other long term (current) drug therapy; Z68.26 Body mass index [BMI] 26.0-26.9, adult
CPT/HCPCS: 36415; 36600; 71045; 78452; 80048; 80053; 80061; 80307; 81001; 82565; 82805; 82962; 83036; 83735; 83880; 84443; 84484; 85025; 85379; 85610; 85730; 87081; 92928; 93005; 93017; 93306; 93458; 96361; 96374; 96375; 99152; 99153; C1874; G0378; J0153; J1815; J2250; J2405; J3490; Q9956; Q9967

== ENCOUNTER 2019-10-09 17:07 | Inpatient (IN) | payer OTHER, MEDICAID ==
[~2019-10-09] VITALS: Ht 172.7 cm; Wt 81.7 kg
[2019-10-09] MEDS ORDERED: ASPirin 81 mg TAB PO ONE (17:30)
[2019-10-09 17:33] LABS: Basophils # (auto) 0.1 10 ^3/uL (0-0.2); Basophils % (auto) 0.6 % (0.0-2.0); Eosinophils # (auto) 0.2 10 ^3/uL (0-0.8); Eosinophils % (auto) 1.8 % (0.0-7.0); Hematocrit 42.9 % (41.0-53.0); Lymphocytes # (auto) 1.2 10 ^3/uL (0.4-5.4); Lymphocytes % (auto) 11.1 % (10.0-50.0); Mean Corpuscular Hemoglobin 31.8 pg (28.0-32.0); Mean Corpuscular Hgb Conc. 34.9 g/dL (32.0-36.0); Mean Corpuscular Volume 91.3 fL (80.0-100.0); Monocytes # (auto) 0.9 10 ^3/uL (0-1.3); Monocytes % (auto) 8.5 % (0.0-12.0); Neutrophils # (auto) 8.3 10 ^3/uL (1.6-8.6); Platelet Count (auto) 207 10^3/uL (140-450); Red Cell Distribution Width 13.5 % (11.8-14.3); White Blood Cell 10.7 10^3/uL (4.4-10.8)
[2019-10-09 17:47] LABS: INR 1.17 (0.9-1.15); Partial Thromboplastin Time 25.9 sec (23.64-32.05)
[2019-10-09 17:51] LABS: Calcium 9.7 mg/dL (8.5-10.1); Magnesium 2.2 mg/dL (1.6-2.6); Potassium 3.8 mmol/L (3.5-5.1)
[2019-10-09 17:57] LABS: BUN/Creatinine Ratio 16.2; Bilirubin, Total 0.5 mg/dL (0.2-1.0); Total Protein 7.6 g/dL (6.4-8.2)
[2019-10-09] MEDS ORDERED: ONDANSETRON HCL 4 MG/2 ML VIAL IV ONE (19:15)
[2019-10-09] MEDS ORDERED: MORPHINE SULF INJ 2 MG/ML SYRINGE 1ML IV ONE (19:15)
[2019-10-09] MEDS ORDERED: HEPARIN DRIP/D5W 100UNITS/ML 250 ML IV SCH (19:37)
[2019-10-09] MEDS ORDERED: HEPARIN SODIUM (PORCINE) 5000 UNITS/ML 1ML VIAL IV ONE ×2 (19:45→20:00)
[2019-10-09] MEDS ORDERED: ONDANSETRON HCL 4 MG/2 ML VIAL IV PRN (19:45)
[2019-10-09] MEDS ORDERED: SODIUM CHLORIDE 0.9% 500 ML IV ONE (19:45)
[2019-10-09] MEDS ORDERED: NITROGLYCERIN 50MG/250ML 250 ML IV SCH (19:45)
[2019-10-09] MEDS ORDERED: DEXTROSE (50%) 50ML SYRG IV PRN (19:45)
[2019-10-09] MEDS ORDERED: NITROGLYCERIN 0.4 MG SL TAB SL PRN (19:45)
[2019-10-09] MEDS ORDERED: CLOPIDOGREL BISULFATE 75 MG TAB PO ONE (20:00)
[2019-10-09] MEDS: METOPROLOL TARTRATE 25 MG TAB PO SCH (21:23)
[2019-10-09] MEDS: ATORVASTATIN 20 MG TAB PO SCH (21:24)
--- NOTE | 2019-10-09 21:39 | NUR ---
Telemetry admit from ER ABELSWATHI admitted to Telemetry unit. Patient oriented to KATELIN DOUGLAS RN primary RN, unit, room, bed, and unit policies regarding patient care and visiting hours. Patient now on continuous telemetry monitoring, tele box #65 and telemetry reading on arrival to unit is SR 90 BPM. Patient placed on bedside oxygen, weighed by bedscale and encouraged to call if he needs something. Fall and safety precautions in place. Call light witin reach and able to use. All questions and concerns addressed, patient verbalized understanding and in agreement. Will continue to monitor q1h and prn.
[2019-10-09 22:00] VITALS: BP_SYST 116; BP_DIAS 68; BP_DIAS 88
[2019-10-09] MEDS ORDERED: TICAGRELOR 90 MG TAB PO SCH (22:00)
[2019-10-09] MEDS ORDERED: ATORVASTATIN 20 MG TAB PO SCH (22:00)
[2019-10-09] MEDS: ACCU-CHEK COMFORT CURVE STRIP VI SCH (22:22)
[2019-10-09] MEDS: InsuLIN REG 1unit/0.01ml Soln (100units/ml) SC SCH (22:24)
--- NOTE | 2019-10-09 22:30 | NUR ---
IV insertion IV access obtained, via clean sterile technique by inserting 20 gauge catheter at Right Hand after 1 attempt. IV secured properly. No trauma to site. Patient tolerated well.
--- NOTE | 2019-10-09 22:40 | NUR ---
Delayed Icu Clerk Patient came up to floor after medication was scheduled (see emar). Additionally, patient had one IV access at the time of arrival which is continuing to run medication (see emar) at this time. IV insertion took place at 2230 and medication (see emar) given at this time. Will continue to monitor.
[2019-10-09] MEDS ORDERED: POM (23:10)
--- NOTE | 2019-10-09 23:57 | NUR ---
ON-CALL HOSP PAGED PATIENT C/O 01/13 PAIN TO GENERALIZED BODY AND CHRONIC LOWER BACK AND REQUESTS TO TAKE HOME MEDICATIONS FOR PAIN AND FOR PERIPHERAL NEUROPATHY. ON-CALL HOSP PAGED. AWAITING CALL BACK. WILL CONTINUE TO MONITOR PATIENT.
--- NOTE | 2019-10-10 00:03 | NUR ---
RECEIVED CALL BACK FROM ON-CALL HOSP UPDATED ON PATIENT STATUS. NEW ORDERS RECEIVED (SEE EMAR). WILL CARRY OUT PRN. WILL CONTINUE TO MONITOR.
[2019-10-10 03:05] LABS: Basophils # (auto) 0 10 ^3/uL (0-0.2); Basophils % (auto) 0.5 % (0.0-2.0); Eosinophils # (auto) 0.3 10 ^3/uL (0-0.8); Eosinophils % (auto) 3.2 % (0.0-7.0); Hematocrit 39.4 % (41.0-53.0); Hemoglobin 13.3 g/dL (13.5-17.5); Lymphocytes # (auto) 3.2 10 ^3/uL (0.4-5.4); Lymphocytes % (auto) 32.9 % (10.0-50.0); Mean Corpuscular Hemoglobin 31.1 pg (28.0-32.0); Mean Corpuscular Hgb Conc. 33.8 g/dL (32.0-36.0); Mean Corpuscular Volume 91.9 fL (80.0-100.0); Monocytes # (auto) 0.9 10 ^3/uL (0-1.3); Monocytes % (auto) 9.7 % (0.0-12.0); Neutrophils # (auto) 5.2 10 ^3/uL (1.6-8.6); Neutrophils % (auto) 53.7 % (37.0-80.0); Nucleated Red Blood Cells % 0.1 %; Platelet Count (auto) 184 10^3/uL (140-450); Red Blood Cells 4.29 10^6/uL (4.5-5.90); Red Cell Distribution Width 13.3 % (11.8-14.3); White Blood Cell 9.6 10^3/uL (4.4-10.8)
[2019-10-10] MEDS: MORPHINE SULFATE 10 MG/5 ML ORAL SOLN PO PRN ×2 (03:08→11:47)
[2019-10-10 03:22] LABS: BUN/Creatinine Ratio 16.5; Calcium 8.6 mg/dL (8.5-10.1); Potassium 3.7 mmol/L (3.5-5.1)
--- NOTE | 2019-10-10 03:38 | NUR ---
CHEST PAIN AND CRITICAL LAB TROP ON-CALL HOSP PAGE. PATIENT HAVING CHEST PAIN AND RECEIVED CRITICAL LAB OF TROP 4.850. AWAITING CALL BACK. WILL CONTINUE TO MONITOR PATIENT. Addendum: 10/10/19 at 0459 by KATELIN DOUGLAS RN RN EKG transferred to [facility], vitals signs BP 113/72; Heart Rate 75 bpm, Respirations 16 even and unlabored, Oxygen saturation 98% on 2 Liters Nasal Cannula.
--- NOTE | 2019-10-10 03:42 | NUR ---
RECEIVED CALL BACK FROM ON-CALL HOSP UPDATED ON PATIENT STATUS. NEW ORDERS RECEIVED, WILL CARRY OUT. WILL CONTINUE TO MONITOR PATIENT.
[2019-10-10] MEDS: MORPHINE SULF INJ 2 MG/ML SYRINGE 1ML IV PRN ×2 (03:51→20:12)
[2019-10-10] MEDS ORDERED: DOCUSATE SOD 100 MG CAP PO PRN (04:00)
[2019-10-10 05:45] VITALS: BP 108/62
[2019-10-10] MEDS: GABAPENTIN 300 MG CAP PO SCH ×3 (06:11→21:50)
[2019-10-10] MEDS: ASPirin 81 mg TAB PO SCH (06:11)
[2019-10-10] MEDS: ACCU-CHEK COMFORT CURVE STRIP VI SCH ×4 (06:12→21:50)
[2019-10-10] MEDS: CLOPIDOGREL BISULFATE 75 MG TAB PO SCH (06:12)
[2019-10-10] MEDS: InsuLIN REG 1unit/0.01ml Soln (100units/ml) SC SCH ×4 (06:14→22:04)
--- NOTE | 2019-10-10 08:37 | NUR ---
Heparin This morning the APTT is 34.5. Per Heparin protocol on eMAR, will give 5000 unit bolus and then increase Heparin drip by 300 units/hour. Spoke with Pharmacy who instructed on entering the Heparin bolus and they said they would order the APTT redraw.
[2019-10-10] MEDS ORDERED: HEPARIN SODIUM (PORCINE) 5000 UNITS/ML 1ML VIAL IV ONE ×2 (08:45→09:00)
[2019-10-10 09:00] VITALS: BP 114/61
[2019-10-10] MEDS: HYDROcodone-ACET 10/325MG TAB PO PRN ×2 (09:31→17:54)
[2019-10-10] MEDS: METOPROLOL TARTRATE 25 MG TAB PO SCH ×2 (09:41→22:00)
[2019-10-10] MEDS: FAMOTIDINE 20 MG TAB PO SCH (09:41)
[2019-10-10] MEDS: HEPARIN DRIP/D5W 100UNITS/ML 250 ML IV SCH (09:55)
[2019-10-10] MEDS ORDERED: ASPirin-EC 81 mg tab PO SCH (10:00)
[2019-10-10 13:51] VITALS: BP_SYST 85; BP_SYST 98; BP_DIAS 50; BP_DIAS 56
[2019-10-10 16:19] LABS: INR 1.12 (0.9-1.15)
--- NOTE | 2019-10-10 16:40 | NUR ---
Heparin APTT level is 65. Per protocol, there is no change to the heparin drip at this time. Next lab will be at 2200.
[2019-10-10 16:51] VITALS: BP 105/62
--- NOTE | 2019-10-10 19:30 | NUR ---
Opening Shift Note Assumed care of patient, awake and alert. No S/S of distress/SOB or pain. Fall and safety precautions in place. Instructed on POC and to call for assist PRN, patient verbalized understanding and in agreement. Call light within reach and able to use. Will continue to monitor for changes Q1hr and PRN.
--- NOTE | 2019-10-10 19:58 | NUR ---
CHEST PAIN / Paged on-call hosp Patient c/o 01/13 stabbing sharp acute chest pain with no radiation, no associated n/v, with associated dyspnea at rest. Vital signs obtained, EKG obtained, and on-call hosp paged. Awaiting call back. Will continue to monitor patient.
--- NOTE | 2019-10-10 20:00 | NUR ---
Received call back from on-call Hosp Received call back from on-call hosp. Updated on patient status, vital signs, c/o chest pain and associated dyspnea, latest EKG (see in chart), and latest troponin. No new orders received, received order to administer morph (see emar) per protocol. Patient has plans for cath in AM. Will continue to monitor patient.
[2019-10-10 22:00] VITALS: BP_SYST 100; BP_SYST 94; BP_DIAS 52; BP_DIAS 58
[2019-10-11] VITALS (9 sets, daily range): BP systolic 104–129; BP diastolic 60–77
--- NOTE | 2019-10-11 | NUR ---
NPO Patient NPO, patient verbalized understanding and in agreement. Will continue to monitor.
--- NOTE | 2019-10-11 04:05 | NUR ---
Paged Dr. Grover Paged Dr. Grover to inquire of continuation/hold of scheduled medications this AM prior to procedure. Awaiting call-back. Will continue to monitor.
[2019-10-11] MEDS: HEPARIN DRIP/D5W 100UNITS/ML 250 ML IV SCH (05:17)
[2019-10-11 05:24] LABS: Basophils # (auto) 0.1 10 ^3/uL (0-0.2); Basophils % (auto) 0.7 % (0.0-2.0); Eosinophils # (auto) 0.5 10 ^3/uL (0-0.8); Eosinophils % (auto) 6.5 % (0.0-7.0); Hematocrit 38.6 % (41.0-53.0); Hemoglobin 13.3 g/dL (13.5-17.5); Lymphocytes # (auto) 2.6 10 ^3/uL (0.4-5.4); Lymphocytes % (auto) 33.2 % (10.0-50.0); Mean Corpuscular Hemoglobin 31.6 pg (28.0-32.0); Mean Corpuscular Hgb Conc. 34.5 g/dL (32.0-36.0); Mean Corpuscular Volume 91.4 fL (80.0-100.0); Monocytes # (auto) 0.7 10 ^3/uL (0-1.3); Neutrophils % (auto) 50.6 % (37.0-80.0); Platelet Count (auto) 181 10^3/uL (140-450); Red Blood Cells 4.22 10^6/uL (4.5-5.90); Red Cell Distribution Width 13.4 % (11.8-14.3); White Blood Cell 7.9 10^3/uL (4.4-10.8)
--- NOTE | 2019-10-11 05:30 | NUR ---
Late Athletic Gear Custodian Awaiting results from lab that have not been received yet at this time to dictate scheduled med (see emar). Will continue to monitor.
--- NOTE | 2019-10-11 05:35 | NUR ---
Left message with Dr. Grover Left message with office member regarding medications scheduled this am. Awaiting call back.
[2019-10-11 05:45] LABS: INR 1.18 (0.9-1.15); Partial Thromboplastin Time 52.1 sec (23.64-32.05)
[2019-10-11] MEDS: GABAPENTIN 300 MG CAP PO SCH ×3 (06:16→21:25)
[2019-10-11] MEDS: InsuLIN REG 1unit/0.01ml Soln (100units/ml) SC SCH ×4 (06:20→21:30)
[2019-10-11] MEDS: ACCU-CHEK COMFORT CURVE STRIP VI SCH ×4 (06:22→21:26)
[2019-10-11] MEDS: ASPirin 81 mg TAB PO SCH (06:39)
[2019-10-11] MEDS: CLOPIDOGREL BISULFATE 75 MG TAB PO SCH (06:39)
[2019-10-11] MEDS: HYDROcodone-ACET 10/325MG TAB PO PRN ×3 (06:40→21:42)
--- NOTE | 2019-10-11 09:50 | NUR ---
Heart cath Patient signed consents for procedure. This morning this nurse was told the patient could eat breakfast and would be taken down for the procedure around [id number]. They stated that a different doctor was doing the procedure and to bring him down right now. He was brought down to the cathode ray tube assembler with the Heparin bag as instructed.
[2019-10-11] MEDS: FAMOTIDINE 20 MG TAB PO SCH (09:58)
[2019-10-11] MEDS ORDERED: METOCLOPRAMIDE HCL 5MG/ml INJ 2ml VIAL IV ONE (10:00)
[2019-10-11] MEDS: METOPROLOL TARTRATE 25 MG TAB PO SCH ×2 (10:00→21:26)
[2019-10-11] MEDS ORDERED: IODIXANOL 320MG/ML 100ML BTL IV ONE (10:15)
[2019-10-11] MEDS ORDERED: LIDOCAINE 2%HCL (LOCAL ANESTH.) INJ 20ML MDV ONE (10:15)
[2019-10-11] MEDS ORDERED: METOCLOPRAMIDE HCL 5MG/ml INJ 2ml VIAL ONE (10:26)
[2019-10-11] MEDS ORDERED: fentaNYL CITRATE 100 MCG/2 ML VL ONE (10:27)
[2019-10-11] MEDS ORDERED: VERAPAMIL 2.5MG/ML INJ 2ML VIAL IV ONE (10:27)
[2019-10-11] MEDS ORDERED: ANGIOMAX 250 MG VIAL IV ONE (10:27)
[2019-10-11] MEDS ORDERED: SODIUM CHL 0.9% 100 ML ONE (10:27)
[2019-10-11] MEDS ORDERED: MIDAZOLAM HCL 1MG/1ML-2 ML VIAL ONE (10:27)
[2019-10-11] MEDS ORDERED: HEPARIN SODIUM (PORCINE) 5000 UNITS/ML 1ML VIAL ONE ×2 (10:28→10:51)
[2019-10-11] MEDS ORDERED: diphenhdrAMINE HCL 50 MG/1 ML VL ONE (10:37)
[2019-10-11] MEDS ORDERED: IOHEXOL 350 MG/ML 100ML IJ ONE (10:38)
[2019-10-11] MEDS ORDERED: CLOPIDOGREL BISULFATE 75 MG TAB ONE (11:01)
[2019-10-11] MEDS ORDERED: ASPirin 81 mg TAB ONE (11:02)
[2019-10-11 15:06] LABS: INR 1.18 (0.9-1.15); Partial Thromboplastin Time 34.7 sec (23.64-32.05)
--- NOTE | 2019-10-11 15:13 | NUR ---
Pt requesting SNF placement/PT Spoke with Uma regarding patient wanting to go to SNF upon discharge because he was recently discharged and ended up getting readmitted due to SOB and inability to walk very far due to that. He is afraid he will go home and be unable to take care of himself or have to come back to the hospital. Per request of Uma Taylor, this nurse put in a PT eval to see if the patient needs SNF placement upon D/C. Patient appears to be doing better since [facility] today. He said he feels less SOB and has less pain. Will continue to monitor.
--- NOTE | 2019-10-11 15:18 | NUR ---
assessment re: ss consult concerned about going home on dc Patient is a 59 year old male who is alert and oriented. Patients cognitive abilities are intact. Prior to admission patient lived home with roommates and functioned independently. Patient informed me he is able to care for his own ADLs. Per patient he will need SNF for med management, and PT. I have requested a PT evaluation on patient. Patient informed me he would feel better going to a SNF for med managementr and PT on discharge. This is a new stent for h I informed patient he has a right to speak to a perinatal social worker regarding all care. I informed patient he has a right to participate in any and all discharge planning. Patient does not have a POA and advanced directive. I have offered patient information on POA and advanced directives. I informed the patient the advantages and benefits of having an Advanced Directive. Patient verbalized understanding and agreed to discharge plan. Addendum: 10/11/19 at 1526 by Uma KEN Amended: Links added.
[2019-10-11] MEDS ORDERED: HEPARIN SODIUM (PORCINE) 5000 UNITS/ML 1ML VIAL IV ONE (15:30)
--- NOTE | 2019-10-11 15:42 | NUR ---
Heparin Patient's APTT is currently 34.7, but the patient was off of the Heparin drip while in clinical laboratory service teacher. He was restarted once he arrived back on the floor and a bag of Heparin was received from pharmacy. This nurse put in the order for a 5000 unit bolus per protocol. Pharmacy stated not to increase the drip at this time, but to recheck APTT in 6 hours (an order which they put in the computer).
[2019-10-11] MEDS: ATORVASTATIN 20 MG TAB PO SCH (17:27)
--- NOTE | 2019-10-11 19:30 | NUR ---
Opening Shift Note Assumed care of patient, AOX4. No S/S of distress/SOB. Sitter at bedside for safety. Fall and safety precautions in place. Instructed on plan of care and to call for assist PRN, patient verbalized understanding and in agreement. Call light within reach and patient is able to use. Will continue to monitor for changes Q1hr and PRN.
[2019-10-11 21:58] LABS: INR 1.19 (0.9-1.15)
[2019-10-11 22:04] LABS: Partial Thromboplastin Time 73.9 sec (23.64-32.05)
--- NOTE | 2019-10-11 22:04 | NUR ---
RECEIVED CRITICAL FROM LAB / ON-CALL HOSP PAGED RECEIVED CALL FROM LAB AT THIS TIME OF PTT 73.9. PATIENT ON HEPARIN DRIP (SEE EMAR). ON-CALL HOSP PAGED. AWAITING CALL BACK. WILL CONTINUE TO MONITOR PATIENT.
--- NOTE | 2019-10-11 22:08 | NUR ---
RECEIVED CALL FROM PHARMACIST RECEIVED CALL FROM PHARMACIST REGARDING HAPERIN DRIP AFTER RECEIVING LAB VALUE OF PTT. PHARMACIST STATED THAT NO CHANGE WILL BE MADE FOR HEPARIN DRIP (SEE EMAR). WILL CONTINUE TO MONITOR.
--- NOTE | 2019-10-11 22:34 | NUR ---
RECEIVED CALL BACK FROM HOSP UPDATED ON PATIENT'S CRITICAL LAB VALUE. NOTIFIED TO FOLLOW PROTOCOL (SEE EMAR). NO CHANGE REQUIRED. WILL CONTINUE TO MONITOR.
--- NOTE | 2019-10-11 22:49 | NUR ---
HEPARIN COMMUNICATION / PAGED MD DANITA SAMAYOA OFFICE CALLED TO CLARIFY ORDER FOR HEPARIN (SEE EMAR) S/P [facility]. AWAITING CALL BACK. WILL CONTINUE TO MONITOR.
--- NOTE | 2019-10-11 22:56 | NUR ---
RECEIVED CALL BACK FROM MD SAMAYOA UPDATED ON PATIENT STATUS. NEW ORDERS RECEIVED, READ BACK AND VERIFIED. WILL CONTINUE TO MONITOR. Addendum: 10/11/19 at 2334 by KATELIN DOUGLAS RN RN (SEE ORDERS)
[2019-10-11] MEDS: MORPHINE SULFATE 10 MG/5 ML ORAL SOLN PO PRN (23:16)
--- NOTE | 2019-10-12 00:50 | NUR ---
MAY SHOWER SPOKE TO ON-CALL HOSP AND UPDATED ON PATIENT REQUEST TO SHOWER AND PATIENT STATUS. NEW ORDER RECEIVED (SEE ORDERS) THAT PATIENT MAY SHOWER. WILL CONTINUE TO MONITOR.
[2019-10-12 05:46] VITALS: BP 107/65
[2019-10-12] MEDS: ASPirin 81 mg TAB PO SCH (06:25)
[2019-10-12] MEDS: GABAPENTIN 300 MG CAP PO SCH ×2 (06:25→15:04)
[2019-10-12] MEDS: ACCU-CHEK COMFORT CURVE STRIP VI SCH ×2 (06:25→11:30)
[2019-10-12] MEDS: CLOPIDOGREL BISULFATE 75 MG TAB PO SCH (06:25)
[2019-10-12] MEDS: HYDROcodone-ACET 10/325MG TAB PO PRN ×2 (06:26→12:25)
[2019-10-12] MEDS: InsuLIN REG 1unit/0.01ml Soln (100units/ml) SC SCH ×2 (06:29→11:30)
--- NOTE | 2019-10-12 07:15 | NUR ---
Opening Shift Note Assumed care of patient, AOX4. No S/S of distress/SOB. Fall and safety precautions in place. Instructed on plan of care and to call for assist PRN, patient verbalized understanding and in agreement. Call light within reach and patient is able to use. Will continue to monitor for changes Q1hr and PRN.
[2019-10-12] MEDS: FAMOTIDINE 20 MG TAB PO SCH (08:57)
[2019-10-12] MEDS: METOPROLOL TARTRATE 25 MG TAB PO SCH (08:57)
[2019-10-12] MEDS: MORPHINE SULFATE 10 MG/5 ML ORAL SOLN PO PRN (08:58)
[2019-10-12 09:06] VITALS: BP 99/64
--- NOTE | 2019-10-12 10:26 | NUR ---
Patient was walking around in hallway independently. DC'd to nursing for any further ambulation. Addendum: 10/12/19 at 1027 by SANKET NORMAN PTT Amended: Links added.
--- NOTE | 2019-10-12 13:14 | NUR ---
D/C Planning Per consult for SNF placement for physical therapy. Faxed clinical information to [facility]. Per Furnace Cooler Lala with [facility] patient requested [facility]:( [phone]). Patient has been accepted to room 404 bed B under MD Dr. Middleton. Transportation has been arrange with [facility]:) with a car pick up driver time between 15:00-16:30. Informed SARAY Pryor. Addendum: 10/12/19 at 1317 by JESSICA SAMANIEGO Amended: Links added.
[2019-10-12 13:20] VITALS: BP 129/80
--- NOTE | 2019-10-12 13:40 | NUR ---
PT REFUSING DC PICTURES Per patient, " it hurts too much when you guys peel the bandaid off and I don't want unnecessary pain caused to me if you're not giving me pain medication." Patient informed that pain medication was just given about an hour ago and patient isn't do for his next dose yet. Patient also educated on importance of having updated wound pictures for comparison, patient continues to refuse D/C pictures taken. Patient informed he has the right to refuse care.
--- NOTE | 2019-10-12 13:50 | NUR ---
Discharge instructions given as ordered. All questions and concerns addressed. Patient verbalized understanding. IV removed with catheter intact, pressure dressing applied. Telemetry unit returned to ICU. D/C MRSA swab collected and sent. Report given to Tyson SO at [facility]. Patient transported with all personal belongings. No distress noted at time of departure.
[2019-10-12 15:21] VITALS: BP 129/80
== END 2019-10-12 15:50 | DRG 246 ==
LOC: EDUNIT# 17:07 → ER 17:07 → EDBD 17:07 → TELE 17:08 → TELE-WESTW 22:06
PROVIDERS: ADMIT Nurse Practitioner Acute Care; ATTEND Family Medicine
PROC: 027034Z Dilation of Coronary Artery, One Artery with Drug-eluting Intraluminal Device, Percutaneous Approach (ICD-10-PCS; principal; 2019-10-11)
PROC: B211YZZ Fluoroscopy of Multiple Coronary Arteries using Other Contrast (ICD-10-PCS; 2019-10-11)
DX: I21.4 Non-ST elevation (NSTEMI) myocardial infarction (principal); I50.43 Acute on chronic combined systolic (congestive) and diastolic (congestive) heart failure; I22.2 Subsequent non-ST elevation (NSTEMI) myocardial infarction; I11.0 Hypertensive heart disease with heart failure; G89.4 Chronic pain syndrome; E11.21 Type 2 diabetes mellitus with diabetic nephropathy; E11.65 Type 2 diabetes mellitus with hyperglycemia; E78.00 Pure hypercholesterolemia, unspecified; J44.9 Chronic obstructive pulmonary disease, unspecified; M54.5 Low back pain; F41.9 Anxiety disorder, unspecified; I25.5 Ischemic cardiomyopathy; E11.40 Type 2 diabetes mellitus with diabetic neuropathy, unspecified; E78.5 Hyperlipidemia, unspecified; F17.210 Nicotine dependence, cigarettes, uncomplicated; I25.10 Atherosclerotic heart disease of native coronary artery without angina pectoris; Z79.84 Long term (current) use of oral hypoglycemic drugs; Z82.3 Family history of stroke; Z91.19 Patient's noncompliance with other medical treatment and regimen; Z82.49 Family history of ischemic heart disease and other diseases of the circulatory system; Z91.14 Patient's other noncompliance with medication regimen
CPT/HCPCS: 36415; 71045; 80048; 80053; 82565; 82962; 83735; 83880; 84484; 85025; 85610; 85730; 87081; 92928; 93005; 93454; 96365; 96372; 97163; 99152; 99153; C1874; C1887; G0378; J1815; J2250; J2405; Q9967

== ENCOUNTER 2020-02-04 12:17 | Emergency (ER) | payer OTHER, MEDICAID ==
[~2020-02-04] VITALS: Ht 172.7 cm; Wt 81.6 kg
[~2020-02-04 12:17] MED LIST changes: -CYCL7.5T15 PO; +CYCL7.5T45 PO; -HYDR-4833 PO; +POM
[2020-02-04 12:21] VITALS: BP 129/78
[2020-02-04 13:40] LABS: Basophils # (auto) 0.1 10 ^3/uL (0-0.2); Basophils % (auto) 0.6 % (0.0-2.0); Eosinophils # (auto) 0.3 10 ^3/uL (0-0.8); Eosinophils % (auto) 3.1 % (0.0-7.0); Hematocrit 40.2 % (41.0-53.0); Hemoglobin 13.7 g/dL (13.5-17.5); Lymphocytes # (auto) 1.5 10 ^3/uL (0.4-5.4); Lymphocytes % (auto) 16.3 % (10.0-50.0); Mean Corpuscular Hemoglobin 31.2 pg (28.0-32.0); Mean Corpuscular Volume 91.5 fL (80.0-100.0); Monocytes # (auto) 0.7 10 ^3/uL (0-1.3); Monocytes % (auto) 7.7 % (0.0-12.0); Neutrophils # (auto) 6.6 10 ^3/uL (1.6-8.6); Neutrophils % (auto) 72.3 % (37.0-80.0); Nucleated Red Blood Cells % 0.1 %; Platelet Count (auto) 197 10^3/uL (140-450); Red Blood Cells 4.39 10^6/uL (4.5-5.90); Red Cell Distribution Width 13.1 % (11.8-14.3); White Blood Cell 9.2 10^3/uL (4.4-10.8)
[2020-02-04 13:55] LABS: INR 1.12 (0.9-1.15); Partial Thromboplastin Time 25.1 sec (23.0-31.2)
[2020-02-04 13:57] LABS: Albumin 3.9 g/dL (3.4-5.0); Anion Gap 5 (5-15); Blood Urea Nitrogen 8 mg/dL (7-18); Carbon Dioxide 28 mmol/L (21-32); Chloride 104 mmol/L (98-107); Glucose 282 mg/dL (74-106); Potassium 3.9 mmol/L (3.5-5.1); Sodium 137 mmol/L (136-145)
[2020-02-04 14:03] LABS: Alanine Aminotransferase 27 U/L (16-61); Alkaline Phosphatase 66 U/L (45-117); Aspartate Aminotransferase 20 U/L (15-37); BUN/Creatinine Ratio 6.7; Bilirubin, Total 0.5 mg/dL (0.2-1.0); GFR African American 80 mL/min; GFR Non-African American 66 mL/min; Total Protein 7.2 g/dL (6.4-8.2)
== END 2020-02-04 21:18 | disposition home or self-care (01) ==
LOC: ER 12:17 → EDBD 12:17 → ER 21:18
DX: I24.9 Acute ischemic heart disease, unspecified (principal); I10 Essential (primary) hypertension; E13.9 Other specified diabetes mellitus without complications; J44.9 Chronic obstructive pulmonary disease, unspecified; F17.210 Nicotine dependence, cigarettes, uncomplicated; Z98.61 Coronary angioplasty status; Z88.6 Allergy status to analgesic agent
CPT/HCPCS: 36415; 80053; 84484; 85025; 85610; 85730; 93005

== ENCOUNTER 2020-09-07 20:24 | Inpatient (IN) | payer OTHER, MEDICAID ==
[~2020-09-07] VITALS: Ht 177.8 cm; Wt 85.2 kg
[2020-09-07] MEDS ORDERED: ONDANSETRON HCL 4 MG/2 ML VIAL IV ONE (20:45)
[2020-09-07] MEDS ORDERED: MORPHINE SULFATE 4 MG/ML SYR/VIAL IV ONE (20:45)
[2020-09-07 22:52] LABS: Basophils # (auto) 0 10 ^3/uL (0-0.2); Basophils % (auto) 0.7 % (0.0-2.0); Eosinophils # (auto) 0.5 10 ^3/uL (0-0.8); Eosinophils % (auto) 6.9 % (0.0-7.0); Hematocrit 32.8 % (41.0-53.0); Hemoglobin 11.6 g/dL (13.5-17.5); Lymphocytes # (auto) 2.2 10 ^3/uL (0.4-5.4); Lymphocytes % (auto) 33.4 % (10.0-50.0); Mean Corpuscular Hemoglobin 32.4 pg (28.0-32.0); Mean Corpuscular Hgb Conc. 35.3 g/dL (32.0-36.0); Mean Corpuscular Volume 91.9 fL (80.0-100.0); Monocytes # (auto) 0.5 10 ^3/uL (0-1.3); Monocytes % (auto) 8.1 % (0.0-12.0); Neutrophils # (auto) 3.4 10 ^3/uL (1.6-8.6); Neutrophils % (auto) 50.9 % (37.0-80.0); Platelet Count (auto) 178 10^3/uL (140-450); Red Blood Cells 3.57 10^6/uL (4.5-5.90); Red Cell Distribution Width 13.5 % (11.8-14.3); White Blood Cell 6.6 10^3/uL (4.4-10.8)
[2020-09-07 23:08] LABS: Albumin 3.2 g/dL (3.4-5.0); Anion Gap 7 (5-15); BUN/Creatinine Ratio 8.8; Blood Urea Nitrogen 9 mg/dL (7-18); Calcium 7.7 mg/dL (8.5-10.1); Carbon Dioxide 26 mmol/L (21-32); Chloride 101 mmol/L (98-107); GFR African American 96 mL/min; GFR Non-African American 79 mL/min; Glucose 291 mg/dL (74-106); Magnesium 1.9 mg/dL (1.6-2.6); Potassium 3.8 mmol/L (3.5-5.1); Sodium 134 mmol/L (136-145)
[2020-09-07 23:13] LABS: Alanine Aminotransferase 19 U/L (16-61); Alkaline Phosphatase 60 U/L (45-117); Aspartate Aminotransferase 16 U/L (15-37); Bilirubin, Total 0.2 mg/dL (0.2-1.0)
[2020-09-07 23:44] LABS: Urine Bacteria NONE SEEN /hpf (None Seen); Urine Blood Negative /uL (Negative); Urine Specific Gravity 1.019 (1.001-1.035); Urine WBC <1 /hpf (0 - 3)
[2020-09-08] MEDS ORDERED: MORPHINE SULFATE 4 MG/ML SYR/VIAL IV ONE (01:30)
[2020-09-08] MEDS ORDERED: DEXTROSE (50%) 50ML SYRG IV PRN (02:45)
[2020-09-08] MEDS ORDERED: ONDANSETRON HCL 4 MG/2 ML VIAL IV PRN (02:45)
[2020-09-08] MEDS ORDERED: SODIUM CHLORIDE 0.9% 1,000 ML IV SCH (03:00)
[2020-09-08 03:04] LABS: Basophils # (auto) 0.1 10 ^3/uL (0-0.2); Basophils % (auto) 0.9 % (0.0-2.0); Eosinophils # (auto) 0.5 10 ^3/uL (0-0.8); Eosinophils % (auto) 7.7 % (0.0-7.0); Hematocrit 33.5 % (41.0-53.0); Hemoglobin 12.2 g/dL (13.5-17.5); Lymphocytes # (auto) 2.4 10 ^3/uL (0.4-5.4); Lymphocytes % (auto) 37.4 % (10.0-50.0); Mean Corpuscular Hemoglobin 33.1 pg (28.0-32.0); Mean Corpuscular Hgb Conc. 36.3 g/dL (32.0-36.0); Monocytes # (auto) 0.5 10 ^3/uL (0-1.3); Monocytes % (auto) 8.2 % (0.0-12.0); Neutrophils % (auto) 45.8 % (37.0-80.0); Platelet Count (auto) 183 10^3/uL (140-450); Red Blood Cells 3.68 10^6/uL (4.5-5.90); Red Cell Distribution Width 13.4 % (11.8-14.3); White Blood Cell 6.5 10^3/uL (4.4-10.8)
[2020-09-08 03:27] LABS: Albumin 3.2 g/dL (3.4-5.0); Anion Gap 5 (5-15); Blood Urea Nitrogen 8 mg/dL (7-18); Carbon Dioxide 28 mmol/L (21-32); Chloride 106 mmol/L (98-107); Glucose 203 mg/dL (74-106); Potassium 3.8 mmol/L (3.5-5.1); Sodium 139 mmol/L (136-145)
[2020-09-08 03:32] LABS: Alanine Aminotransferase 19 U/L (16-61); Alkaline Phosphatase 61 U/L (45-117); Aspartate Aminotransferase 13 U/L (15-37); Bilirubin, Total 0.3 mg/dL (0.2-1.0); GFR African American 98 mL/min; GFR Non-African American 81 mL/min
[2020-09-08] MEDS: ACCU-CHEK COMFORT CURVE STRIP VI SCH ×5 (04:21→20:51)
[2020-09-08] MEDS: InsuLIN REG 1unit/0.01ml Soln (100units/ml) SC SCH ×5 (04:22→21:02)
[2020-09-08] MEDS ORDERED: hydrALAZINE HCL 20 MG/ML VL IV PRN (04:45)
[2020-09-08] MEDS ORDERED: NITROGLYCERIN 0.4 MG SL TAB SL PRN (04:45)
[2020-09-08] MEDS ORDERED: MORPHINE SULF INJ 2 MG/ML SYRINGE 1ML IV PRN (04:45)
[2020-09-08] MEDS ORDERED: ACETAMINOPHEN 325 MG TAB PO PRN (04:45)
[2020-09-08] MEDS ORDERED: DOCUSATE SOD 100 MG CAP PO PRN (04:45)
[2020-09-08] MEDS: SODIUM CHLORIDE 0.9% 1,000 ML IV SCH ×2 (06:59→21:25)
[2020-09-08] MEDS: HYDROcodone-ACET 5/325MG TAB PO PRN ×3 (08:50→21:55)
[2020-09-08 09:00] VITALS: BP 136/84
[2020-09-08] MEDS ORDERED: LISINOPRIL 20 MG TAB PO ONE (11:00)
[2020-09-08] MEDS ORDERED: METOPROLOL TARTRATE 50 MG TAB PO ONE (11:00)
[2020-09-08] MEDS: ASPirin-EC 81 mg tab PO SCH (11:22)
[2020-09-08] MEDS: ZINC SULFATE 220mg CAP or TAB PO SCH (11:22)
[2020-09-08] MEDS: MULTIPLE VITAMIN TAB PO SCH (11:22)
[2020-09-08] MEDS: FAMOTIDINE 20 MG TAB PO SCH ×2 (11:24→21:55)
[2020-09-08] MEDS: ASCORBIC ACID 500 MG TAB PO SCH ×2 (11:24→21:55)
[2020-09-08] MEDS: ENOXAPARIN SOD 40 MG/0.4 ML SYRINGE SC SCH (11:24)
[2020-09-08] MEDS: MORPHINE SULFATE 4 MG/ML SYR/VIAL IV PRN ×2 (11:51→18:16)
[2020-09-08 13:00] VITALS: BP 109/62
[2020-09-08 13:38] LABS: Alcohol, Urine < 3.0 mg/dL (0-10); Amphetamine Screen, Urine NEGATIVE (NEGATIVE); Barbiturate Scree,Urine NEGATIVE (NEGATIVE); Benzodiazephine Screen, Urine NEGATIVE (NEGATIVE); Cannabinoid Screen, Urine NEGATIVE (NEGATIVE); Cocaine Screen, Urine NEGATIVE (NEGATIVE); Opiate Scree,Urine POSITIVE (NEGATIVE); Phencyclidine Screen, Urine NEGATIVE (NEGATIVE)
[2020-09-08] MEDS ORDERED: HYDR-4798 PO (13:39)
[2020-09-08] MEDS ORDERED: CLOP75TA28 PO (13:39)
[2020-09-08] MEDS ORDERED: ASPI-543 PO (13:39)
[2020-09-08 16:52] VITALS: BP 111/73
[2020-09-08 20:00] VITALS: BP 105/64
[2020-09-08] MEDS: METOPROLOL TARTRATE 50 MG TAB PO SCH (21:56)
[2020-09-08 21:58] VITALS: BP 105/64
[2020-09-08] MEDS ORDERED: ATORVASTATIN 20 MG TAB PO SCH (22:00)
[2020-09-09] MEDS: ACCU-CHEK COMFORT CURVE STRIP VI SCH ×3 (00:24→08:14)
[2020-09-09] MEDS: InsuLIN REG 1unit/0.01ml Soln (100units/ml) SC SCH ×3 (00:25→08:17)
[2020-09-09 05:28] VITALS: BP 117/65
[2020-09-09] MEDS: MORPHINE SULFATE 4 MG/ML SYR/VIAL IV PRN (05:51)
[2020-09-09 06:10] LABS: Basophils # (auto) 0 10 ^3/uL (0-0.2); Basophils % (auto) 0.7 % (0.0-2.0); Eosinophils # (auto) 0.5 10 ^3/uL (0-0.8); Eosinophils % (auto) 8.7 % (0.0-7.0); Hematocrit 35.8 % (41.0-53.0); Hemoglobin 12.4 g/dL (13.5-17.5); Lymphocytes # (auto) 1.9 10 ^3/uL (0.4-5.4); Lymphocytes % (auto) 33.8 % (10.0-50.0); Mean Corpuscular Hemoglobin 32.1 pg (28.0-32.0); Mean Corpuscular Hgb Conc. 34.6 g/dL (32.0-36.0); Mean Corpuscular Volume 92.5 fL (80.0-100.0); Monocytes # (auto) 0.4 10 ^3/uL (0-1.3); Monocytes % (auto) 7.7 % (0.0-12.0); Neutrophils # (auto) 2.8 10 ^3/uL (1.6-8.6); Neutrophils % (auto) 49.1 % (37.0-80.0); Nucleated Red Blood Cells % 0.1 %; Platelet Count (auto) 177 10^3/uL (140-450); Red Blood Cells 3.87 10^6/uL (4.5-5.90); Red Cell Distribution Width 13.6 % (11.8-14.3); White Blood Cell 5.7 10^3/uL (4.4-10.8)
[2020-09-09 06:32] LABS: Calcium 8.5 mg/dL (8.5-10.1); Potassium 4.1 mmol/L (3.5-5.1)
[2020-09-09 06:37] LABS: BUN/Creatinine Ratio 10.4; Bilirubin, Total 0.4 mg/dL (0.2-1.0)
[2020-09-09] MEDS: ASPirin-EC 81 mg tab PO SCH (08:14)
[2020-09-09] MEDS: ZINC SULFATE 220mg CAP or TAB PO SCH (08:14)
[2020-09-09] MEDS: MULTIPLE VITAMIN TAB PO SCH (08:15)
[2020-09-09] MEDS: FAMOTIDINE 20 MG TAB PO SCH (08:15)
[2020-09-09] MEDS: METOPROLOL TARTRATE 50 MG TAB PO SCH (08:15)
[2020-09-09] MEDS: ASCORBIC ACID 500 MG TAB PO SCH (08:15)
[2020-09-09] MEDS: ENOXAPARIN SOD 40 MG/0.4 ML SYRINGE SC SCH (08:16)
[2020-09-09 09:00] VITALS: BP 124/78
[2020-09-09 09:04] VITALS: BP 124/78
[2020-09-09] MEDS ORDERED: LISINOPRIL 20 MG TAB PO SCH (10:00)
== END 2020-09-09 10:45 | disposition home or self-care (01) | DRG 313 ==
LOC: EDBD 20:24 → ER 20:28 → TELE 20:29 → TELE-CENTR 09-08 07:25
PROVIDERS: ADMIT Nurse Practitioner Family; ATTEND Family Medicine
DX: R07.89 Other chest pain (principal); J44.1 Chronic obstructive pulmonary disease with (acute) exacerbation; E78.5 Hyperlipidemia, unspecified; F41.9 Anxiety disorder, unspecified; I10 Essential (primary) hypertension; E11.65 Type 2 diabetes mellitus with hyperglycemia; E78.00 Pure hypercholesterolemia, unspecified; F10.10 Alcohol abuse, uncomplicated; F17.210 Nicotine dependence, cigarettes, uncomplicated; Z20.822 Contact with and (suspected) exposure to COVID-19; Z79.4 Long term (current) use of insulin; Z82.3 Family history of stroke; Z82.49 Family history of ischemic heart disease and other diseases of the circulatory system; Z95.5 Presence of coronary angioplasty implant and graft; Z88.8 Allergy status to other drugs, medicaments and biological substances
CPT/HCPCS: 36415; 70450; 71045; 80053; 80307; 81001; 82962; 83036; 83735; 83880; 84484; 85025; 85379; 87426; 93005; 96361; 96374; 96375; 96376; G0378; J1815; J2405

== ENCOUNTER 2020-11-25 15:07 | Emergency (ER) | payer OTHER, MEDICAID ==
[~2020-11-25] VITALS: Ht 172.7 cm; Wt 81.6 kg
[~2020-11-25 15:07] MED LIST changes: +ASPI-543 PO; +CLOP75TA28 PO; +HYDR-4798 PO
[2020-11-25 15:33] LABS: Basophils # (auto) 0 10 ^3/uL (0-0.2); Basophils % (auto) 0.6 % (0.0-2.0); Eosinophils # (auto) 0.3 10 ^3/uL (0-0.8); Eosinophils % (auto) 4.8 % (0.0-7.0); Hematocrit 38.3 % (41.0-53.0); Hemoglobin 13.4 g/dL (13.5-17.5); Lymphocytes # (auto) 2.6 10 ^3/uL (0.4-5.4); Lymphocytes % (auto) 36.3 % (10.0-50.0); Mean Corpuscular Hemoglobin 31.8 pg (28.0-32.0); Mean Corpuscular Volume 90.8 fL (80.0-100.0); Monocytes # (auto) 0.6 10 ^3/uL (0-1.3); Monocytes % (auto) 8.1 % (0.0-12.0); Neutrophils # (auto) 3.6 10 ^3/uL (1.6-8.6); Neutrophils % (auto) 50.2 % (37.0-80.0); Nucleated Red Blood Cells % 0.1 %; Platelet Count (auto) 270 10^3/uL (140-450); Red Blood Cells 4.22 10^6/uL (4.5-5.90); Red Cell Distribution Width 13.2 % (11.8-14.3); White Blood Cell 7.2 10^3/uL (4.4-10.8)
[2020-11-25 15:58] LABS: Albumin 3.9 g/dL (3.4-5.0); Anion Gap 9 (5-15); Blood Urea Nitrogen 10 mg/dL (7-18); Carbon Dioxide 27 mmol/L (21-32); Chloride 99 mmol/L (98-107); Glucose 285 mg/dL (74-106); Potassium 3.5 mmol/L (3.5-5.1); Sodium 135 mmol/L (136-145)
[2020-11-25 16:04] LABS: Alanine Aminotransferase 17 U/L (16-61); Alkaline Phosphatase 63 U/L (45-117); Aspartate Aminotransferase 14 U/L (15-37); BUN/Creatinine Ratio 8.4; Bilirubin, Total 0.4 mg/dL (0.2-1.0); GFR African American 80 mL/min; GFR Non-African American 66 mL/min; Total Protein 7.7 g/dL (6.4-8.2)
[2020-11-25 17:15] LABS: Urine Bacteria NONE SEEN /hpf (None Seen); Urine Blood Negative /uL (Negative); Urine Specific Gravity 1.007 (1.001-1.035); Urine WBC 1 /hpf (0 - 3)
[2020-11-25 17:25] LABS: Alcohol, Urine < 3.0 mg/dL (0-10); Amphetamine Screen, Urine NEGATIVE (NEGATIVE); Barbiturate Scree,Urine NEGATIVE (NEGATIVE); Benzodiazephine Screen, Urine NEGATIVE (NEGATIVE); Cannabinoid Screen, Urine NEGATIVE (NEGATIVE); Cocaine Screen, Urine NEGATIVE (NEGATIVE); Opiate Scree,Urine NEGATIVE (NEGATIVE); Phencyclidine Screen, Urine NEGATIVE (NEGATIVE)
[2020-11-25 19:34] VITALS: BP 111/77
== END 2020-11-25 19:43 | disposition home or self-care (01) ==
LOC: ER 15:07
DX: R07.89 Other chest pain (principal); M94.0 Chondrocostal junction syndrome [Tietze]; I10 Essential (primary) hypertension; E11.9 Type 2 diabetes mellitus without complications; J44.9 Chronic obstructive pulmonary disease, unspecified; I25.10 Atherosclerotic heart disease of native coronary artery without angina pectoris; F17.210 Nicotine dependence, cigarettes, uncomplicated; Z79.82 Long term (current) use of aspirin; Z79.899 Other long term (current) drug therapy; Z88.8 Allergy status to other drugs, medicaments and biological substances
CPT/HCPCS: 36415; 71045; 80053; 80307; 81001; 84484; 85025; 93005

== ENCOUNTER 2021-08-25 08:34 | Emergency (ER) | payer OTHER, MEDICAID ==
[~2021-08-25] VITALS: Ht 172.7 cm; Wt 77.1 kg
[~2021-08-25 08:34] MED LIST changes: +CYCL-838 PO; -CYCL7.5T45 PO
[2021-08-25] MEDS ORDERED: ONDANSETRON HCL 4 MG/2 ML VIAL IV ONE (10:30)
[2021-08-25] MEDS ORDERED: MORPHINE SULFATE INJECTION 2 MG/ML SYRG IV ONE (10:30)
[2021-08-25] MEDS ORDERED: SODIUM CHLORIDE 0.9% 1,000 ML IV ONE (10:30)
[2021-08-25 10:49] LABS: Urine Bacteria NONE SEEN /hpf (None Seen); Urine Blood Negative /uL (Negative); Urine Specific Gravity 1.009 (1.001-1.035); Urine WBC <1 /hpf (0 - 3)
[2021-08-25 10:53] LABS: Basophils # (auto) 0 10 ^3/uL (0-0.2); Basophils % (auto) 0.4 % (0.0-2.0); Eosinophils # (auto) 0.1 10 ^3/uL (0-0.8); Eosinophils % (auto) 0.9 % (0.0-7.0); Hematocrit 46.8 % (41.0-53.0); Hemoglobin 15.9 g/dL (13.5-17.5); Lymphocytes # (auto) 1.5 10 ^3/uL (0.4-5.4); Lymphocytes % (auto) 18.2 % (10.0-50.0); Mean Corpuscular Hemoglobin 31.8 pg (28.0-32.0); Mean Corpuscular Hgb Conc. 34.1 g/dL (32.0-36.0); Mean Corpuscular Volume 93.4 fL (80.0-100.0); Monocytes # (auto) 0.5 10 ^3/uL (0-1.3); Monocytes % (auto) 5.7 % (0.0-12.0); Neutrophils # (auto) 6.1 10 ^3/uL (1.6-8.6); Neutrophils % (auto) 74.8 % (37.0-80.0); Nucleated Red Blood Cells % 0.1 %; Red Blood Cells 5.01 10^6/uL (4.5-5.90); White Blood Cell 8.2 10^3/uL (4.4-10.8)
[2021-08-25 11:05] LABS: INR 1.14 (0.9-1.15); Partial Thromboplastin Time 26.8 sec (23.6-33.0)
[2021-08-25 11:52] LABS: Amphetamine Screen, Urine NEGATIVE (NEGATIVE); Barbiturate Scree,Urine NEGATIVE (NEGATIVE); Benzodiazephine Screen, Urine NEGATIVE (NEGATIVE); Cannabinoid Screen, Urine NEGATIVE (NEGATIVE); Cocaine Screen, Urine NEGATIVE (NEGATIVE); Opiate Scree,Urine NEGATIVE (NEGATIVE); Phencyclidine Screen, Urine NEGATIVE (NEGATIVE)
[2021-08-25 12:09] VITALS: BP 106/59
[2021-08-25] MEDS ORDERED: LORazepam 2MG/ML-1ML VIAL IV ONE (12:30)
[2021-08-25 12:55] LABS: Anion Gap 7 (5-15); Carbon Dioxide 25 mmol/L (21-32); Chloride 105 mmol/L (98-107); Potassium 4.1 mmol/L (3.5-5.1); Sodium 137 mmol/L (136-145)
[2021-08-25 12:56] LABS: Alanine Aminotransferase 23 U/L (16-61); Albumin 3.9 g/dL (3.4-5.0); Alkaline Phosphatase 62 U/L (45-117); Aspartate Aminotransferase 13 U/L (15-37); BUN/Creatinine Ratio 8.6; Bilirubin, Total 0.4 mg/dL (0.2-1.0); Blood Urea Nitrogen 10 mg/dL (7-18); Calcium 9.3 mg/dL (8.5-10.1); GFR African American 83 mL/min; GFR Non-African American 68 mL/min; Glucose 278 mg/dL (74-106); Magnesium 2.5 mg/dL (1.6-2.6); Total Protein 7.4 g/dL (6.4-8.2)
== END 2021-08-25 16:31 | disposition home or self-care (01) ==
LOC: ER 08:34
DX: R07.89 Other chest pain (principal); E11.65 Type 2 diabetes mellitus with hyperglycemia; I25.10 Atherosclerotic heart disease of native coronary artery without angina pectoris; I25.2 Old myocardial infarction; G89.4 Chronic pain syndrome; J44.9 Chronic obstructive pulmonary disease, unspecified; I10 Essential (primary) hypertension; Z87.891 Personal history of nicotine dependence; Z79.899 Other long term (current) drug therapy; Z79.82 Long term (current) use of aspirin; Z79.01 Long term (current) use of anticoagulants; Z88.8 Allergy status to other drugs, medicaments and biological substances
CPT/HCPCS: 36415; 71045; 80053; 80307; 81001; 83735; 83880; 84484; 85025; 85379; 85610; 85730; 93005; 96361; 96374; 96375; 99285; J2060; J2270; J2405; J7030

== ENCOUNTER 2022-01-18 21:21 | Emergency (ER) | payer OTHER, MEDICAID ==
[~2022-01-18] VITALS: Ht 172.7 cm; Wt 77.0 kg
[2022-01-18 22:49] LABS: Albumin 4.3 g/dL (3.4-5.0); BUN/Creatinine Ratio 8.2; Calcium 9.3 mg/dL (8.5-10.1); Potassium 3.6 mmol/L (3.5-5.1); Salicylate < 1.7 mg/dL (2.8-20.0)
[2022-01-18 22:51] LABS: Acetaminophen < 2.0 ug/mL (10-30); Basophils # (auto) 0 10 ^3/uL (0-0.2); Basophils % (auto) 0.1 % (0.0-2.0); Bilirubin, Total 0.3 mg/dL (0.2-1.0); Eosinophils # (auto) 0 10 ^3/uL (0-0.8); Hematocrit 38.5 % (41.0-53.0); Hemoglobin 12.9 g/dL (13.5-17.5); Lymphocytes # (auto) 1.3 10 ^3/uL (0.4-5.4); Mean Corpuscular Hemoglobin 31.1 pg (28.0-32.0); Mean Corpuscular Hgb Conc. 33.5 g/dL (32.0-36.0); Mean Corpuscular Volume 92.9 fL (80.0-100.0); Monocytes % (auto) 9.5 % (0.0-12.0); Neutrophils # (auto) 8.2 10 ^3/uL (1.6-8.6); Neutrophils % (auto) 78.4 % (37.0-80.0); Nucleated Red Blood Cells % 0.1 %; Red Blood Cells 4.14 10^6/uL (4.5-5.90); Red Cell Distribution Width 14.4 % (11.8-14.3); Total Protein 7.8 g/dL (6.4-8.2); White Blood Cell 10.5 10^3/uL (4.4-10.8)
[2022-01-19] MEDS ORDERED: ACETAMINOPHEN 500 MG TAB PO ONE (10:00)
[2022-01-19] MEDS: SERTRALINE HCL 50 MG TAB PO SCH (10:17)
[2022-01-19] MEDS: busPIRone HCL 10 MG TAB PO SCH ×2 (10:18→21:31)
[2022-01-19] MEDS ORDERED: HYDROcodone-ACET 5/325MG TAB PO ONE (13:15)
[2022-01-19] MEDS ORDERED: HYDROcodone-ACET 5/325MG TAB PO PRN (20:30)
[2022-01-19] MEDS: HYDROcodone-ACET 5/325MG TAB PO PRN (20:42)
[2022-01-19] MEDS: QUEtiapine FUMARATE 100 MG TAB PO SCH (21:31)
[2022-01-20] MEDS: HYDROcodone-ACET 5/325MG TAB PO PRN ×4 (03:07→21:26)
[2022-01-20 08:19] LABS: Urine Bacteria MANY /hpf (None Seen); Urine Blood Negative /uL (Negative); Urine Mucus FEW (None Seen); Urine Specific Gravity 1.019 (1.001-1.035); Urine Sperm PRESENT /hpf (None Seen); Urine WBC 3 /hpf (0 - 3)
[2022-01-20] MEDS: busPIRone HCL 10 MG TAB PO SCH ×2 (10:13→21:26)
[2022-01-20] MEDS: SERTRALINE HCL 50 MG TAB PO SCH (10:13)
[2022-01-20 20:58] VITALS: BP 126/74
[2022-01-20] MEDS: QUEtiapine FUMARATE 100 MG TAB PO SCH (21:26)
[2022-01-21] MEDS: HYDROcodone-ACET 5/325MG TAB PO PRN ×2 (04:00→10:13)
[2022-01-21] MEDS: busPIRone HCL 10 MG TAB PO SCH (10:13)
[2022-01-21] MEDS: SERTRALINE HCL 50 MG TAB PO SCH (10:13)
== END 2022-01-21 10:17 | disposition left against medical advice (07) ==
LOC: ER 21:21 → EDBD 21:21 → ER 01-21 10:17
DX: R45.851 Suicidal ideations (principal); R41.82 Altered mental status, unspecified; F32.9 Major depressive disorder, single episode, unspecified; F41.9 Anxiety disorder, unspecified; J44.9 Chronic obstructive pulmonary disease, unspecified; E11.9 Type 2 diabetes mellitus without complications; I10 Essential (primary) hypertension; Z87.891 Personal history of nicotine dependence; Z20.822 Contact with and (suspected) exposure to COVID-19
CPT/HCPCS: 36415; 70450; 71045; 80053; 80320; 80329; 81001; 84484; 85025; 93005

== ENCOUNTER 2022-05-01 04:19 | Inpatient (IN) | payer OTHER, MEDICAID ==
[~2022-05-01] VITALS: Ht 172.7 cm; Wt 78.2 kg
[2022-05-01 05:32] LABS: Basophils # (auto) 0.1 10 ^3/uL (0-0.2); Basophils % (auto) 0.5 % (0.0-2.0); Eosinophils # (auto) 0.2 10 ^3/uL (0-0.8); Eosinophils % (auto) 1.7 % (0.0-7.0); Hematocrit 38.3 % (41.0-53.0); Hemoglobin 13.3 g/dL (13.5-17.5); Lymphocytes # (auto) 1.5 10 ^3/uL (0.4-5.4); Lymphocytes % (auto) 13.1 % (10.0-50.0); Mean Corpuscular Hemoglobin 31.3 pg (28.0-32.0); Mean Corpuscular Hgb Conc. 34.6 g/dL (32.0-36.0); Mean Corpuscular Volume 90.3 fL (80.0-100.0); Monocytes # (auto) 0.8 10 ^3/uL (0-1.3); Monocytes % (auto) 6.9 % (0.0-12.0); Neutrophils # (auto) 8.7 10 ^3/uL (1.6-8.6); Neutrophils % (auto) 77.8 % (37.0-80.0); Red Blood Cells 4.25 10^6/uL (4.5-5.90); Red Cell Distribution Width 13.6 % (11.8-14.3); White Blood Cell 11.2 10^3/uL (4.4-10.8)
[2022-05-01 05:54] LABS: Albumin 3.9 g/dL (3.4-5.0); BUN/Creatinine Ratio 11.5; Calcium 9.2 mg/dL (8.5-10.1); Magnesium 2.1 mg/dL (1.6-2.6); Potassium 4.1 mmol/L (3.5-5.1)
[2022-05-01 05:57] LABS: Bilirubin, Total 0.6 mg/dL (0.2-1.0); Total Protein 6.8 g/dL (6.4-8.2)
[2022-05-01] MEDS ORDERED: HYDROcodone-ACET 5/325MG TAB PO ONE (06:00)
[2022-05-01] MEDS ORDERED: methylPREDNISolone SOD SUCC 125 MG/2 ML VL IV ONE (07:00)
[2022-05-01] MEDS ORDERED: ALBUTEROL SULF 2.5 MG/0.5ML(0.5%) NEB SOLN NEB ONE (07:00)
[2022-05-01] MEDS ORDERED: IPRATROPIUM BROM 0.5 MG/2.5ML INH SOL NEB ONE (07:00)
[2022-05-01] MEDS ORDERED: NITROGLYCERIN 0.4 MG SL TAB SL PRN (11:15)
[2022-05-01] MEDS ORDERED: DEXTROSE (50%) 50ML SYRG IV PRN (11:15)
[2022-05-01] MEDS ORDERED: DOCUSATE SOD 100 MG CAP PO PRN (11:15)
[2022-05-01] MEDS ORDERED: MORPHINE SULFATE INJ 2 MG/ml SYRG IV PRN (11:15)
[2022-05-01] MEDS ORDERED: ONDANSETRON HCL 4 MG/2 ML VIAL IV PRN (11:15)
[2022-05-01] MEDS ORDERED: ENOXAPARIN SOD 100 MG/1 ML SYRINGE SC SCH (11:37)
[2022-05-01] MEDS ORDERED: IOHEXOL 350 MG/ML 100ML IJ ONE (11:40)
[2022-05-01] MEDS: ACCU-CHEK COMFORT CURVE STRIP VI SCH ×3 (12:04→22:37)
[2022-05-01] MEDS: InsuLIN REG 1unit/0.01ml Soln (100units/ml) SC SCH ×4 (12:11→23:05)
[2022-05-01] MEDS: HYDROcodone-ACET 10/325MG TAB PO PRN ×3 (12:39→22:36)
[2022-05-01 12:55] VITALS: BP 121/57
[2022-05-01] MEDS: methylPREDNISolone SOD SUCC 40 MG/ML VL IV SCH ×2 (13:32→22:36)
[2022-05-01] MEDS: CYCLOBENZAPRINE HCL 10 MG TAB PO SCH ×2 (13:32→22:37)
[2022-05-01] MEDS: ALBUTEROL SULF 2.5 MG/0.5ML(0.5%) NEB SOLN NEB PRN ×2 (13:43→21:09)
[2022-05-01] MEDS: IPRATROPIUM BROM 0.5 MG/2.5ML INH SOL NEB PRN ×2 (13:43→21:09)
[2022-05-01] MEDS: guaiFENesin-CODEINE Liq 5 ML UD PO PRN ×2 (15:17→22:58)
[2022-05-01 22:20] VITALS: BP 139/72
[2022-05-01] MEDS: TEMAZEPAM 15 MG CAP PO PRN (22:59)
[2022-05-02] MEDS: guaiFENesin-CODEINE Liq 5 ML UD PO PRN ×2 (04:23→11:30)
[2022-05-02 05:00] VITALS: BP 128/81
[2022-05-02] MEDS: HYDROcodone-ACET 10/325MG TAB PO PRN ×3 (05:29→20:12)
[2022-05-02] MEDS: CYCLOBENZAPRINE HCL 10 MG TAB PO SCH ×3 (05:31→22:40)
[2022-05-02] MEDS: methylPREDNISolone SOD SUCC 40 MG/ML VL IV SCH ×2 (05:31→22:39)
[2022-05-02 06:11] LABS: Basophils # (auto) 0 10 ^3/uL (0-0.2); Basophils % (auto) 0.1 % (0.0-2.0); Eosinophils # (auto) 0 10 ^3/uL (0-0.8); Hematocrit 37.1 % (41.0-53.0); Hemoglobin 12.9 g/dL (13.5-17.5); Lymphocytes % (auto) 7.6 % (10.0-50.0); Mean Corpuscular Hemoglobin 31.6 pg (28.0-32.0); Mean Corpuscular Hgb Conc. 34.8 g/dL (32.0-36.0); Mean Corpuscular Volume 90.8 fL (80.0-100.0); Monocytes # (auto) 0.6 10 ^3/uL (0-1.3); Monocytes % (auto) 4.5 % (0.0-12.0); Neutrophils # (auto) 11.8 10 ^3/uL (1.6-8.6); Neutrophils % (auto) 87.8 % (37.0-80.0); Red Blood Cells 4.09 10^6/uL (4.5-5.90); White Blood Cell 13.5 10^3/uL (4.4-10.8)
[2022-05-02 06:25] LABS: Potassium 4.5 mmol/L (3.5-5.1)
[2022-05-02] MEDS: ACCU-CHEK COMFORT CURVE STRIP VI SCH ×4 (06:35→22:40)
[2022-05-02 06:37] LABS: Albumin 3.8 g/dL (3.4-5.0); BUN/Creatinine Ratio 16.2; Bilirubin, Total 0.5 mg/dL (0.2-1.0); Calcium 9.5 mg/dL (8.5-10.1); Total Protein 6.9 g/dL (6.4-8.2)
[2022-05-02 08:10] VITALS: BP 118/67
[2022-05-02 09:00] VITALS: BP 118/67
[2022-05-02] MEDS ORDERED: ASPirin-EC 81 mg tab PO SCH (10:00)
[2022-05-02] MEDS ORDERED: PATIENTS OWN MEDICATION (Clopidogrel Bisulfate (Plavix) 1 TAB) PO SCH (10:00)
[2022-05-02] MEDS ORDERED: PANTOPRAZOLE 40 MG/10 ML VIAL INJ IV SCH (10:00)
[2022-05-02] MEDS: ASPirin 81 mg TAB PO SCH (10:29)
[2022-05-02] MEDS: CLOPIDOGREL BISULFATE 75 MG TAB PO SCH (10:29)
[2022-05-02] MEDS ORDERED: MORPHINE SULF 30 mg ER tab PO ONE (11:00)
[2022-05-02] MEDS: ALBUTEROL SULF 2.5 MG/0.5ML(0.5%) NEB SOLN NEB SCH ×3 (11:12→22:24)
[2022-05-02] MEDS: IPRATROPIUM BROM 0.5 MG/2.5ML INH SOL NEB SCH ×3 (11:13→22:24)
[2022-05-02] MEDS ORDERED: cefTRIAXone 1GM/50ML D5W 50 ML IV ONE (11:15)
[2022-05-02] MEDS ORDERED: AZITHROMYCIN 250 MG TAB PO ONE (11:15)
[2022-05-02] MEDS: InsuLIN REG 1unit/0.01ml Soln (100units/ml) SC SCH ×3 (11:58→22:48)
[2022-05-02 13:00] VITALS: BP 114/74
[2022-05-02 16:57] VITALS: BP 116/65
[2022-05-02 18:41] LABS: Urine Amorphous Crystal FEW /hpf (None Seen); Urine Bacteria NONE SEEN /hpf (None Seen); Urine Blood Negative /uL (Negative); Urine Specific Gravity 1.029 (1.001-1.035); Urine WBC 1 /hpf (0 - 3)
[2022-05-02 22:00] VITALS: BP 110/53
[2022-05-02] MEDS: MORPHINE SULF 30 mg ER tab PO SCH (22:40)
[2022-05-03 05:00] VITALS: BP 116/63
[2022-05-03] MEDS: CYCLOBENZAPRINE HCL 10 MG TAB PO SCH ×3 (05:54→21:30)
[2022-05-03] MEDS: HYDROcodone-ACET 10/325MG TAB PO PRN ×3 (05:55→18:48)
[2022-05-03] MEDS: ACCU-CHEK COMFORT CURVE STRIP VI SCH ×4 (06:00→22:00)
[2022-05-03] MEDS: InsuLIN REG 1unit/0.01ml Soln (100units/ml) SC SCH ×3 (06:04→18:44)
[2022-05-03] MEDS: ALBUTEROL SULF 2.5 MG/0.5ML(0.5%) NEB SOLN NEB SCH ×5 (06:35→20:13)
[2022-05-03] MEDS: IPRATROPIUM BROM 0.5 MG/2.5ML INH SOL NEB SCH ×5 (06:35→20:13)
[2022-05-03 08:10] VITALS: BP 117/77
[2022-05-03 09:00] VITALS: BP 117/77
[2022-05-03] MEDS: cefTRIAXone 1GM/50ML D5W 50 ML IV SCH (09:05)
[2022-05-03] MEDS: ASPirin 81 mg TAB PO SCH (10:20)
[2022-05-03] MEDS: methylPREDNISolone SOD SUCC 40 MG/ML VL IV SCH (10:20)
[2022-05-03] MEDS: AZITHROMYCIN 250 MG TAB PO SCH (10:21)
[2022-05-03] MEDS: MORPHINE SULF 30 mg ER tab PO SCH ×2 (10:21→21:30)
[2022-05-03] MEDS: CLOPIDOGREL BISULFATE 75 MG TAB PO SCH (10:21)
[2022-05-03] MEDS: PANTOPRAZOLE 40 MG TAB PO SCH (10:21)
[2022-05-03] MEDS ORDERED: DEXTROSE (50%) 50ML SYRG IV PRN (10:45)
[2022-05-03] MEDS: guaiFENesin-CODEINE Liq 5 ML UD PO PRN (10:47)
[2022-05-03 13:09] VITALS: BP 123/70
[2022-05-03 17:00] VITALS: BP 118/68
[2022-05-03] MEDS: TEMAZEPAM 15 MG CAP PO PRN (21:30)
[2022-05-03 22:00] VITALS: BP 127/74
[2022-05-03] MEDS ORDERED: InsuLIN REG 1unit/0.01ml Soln (100units/ml) SC SCH (22:00)
[2022-05-04 05:00] VITALS: BP 124/70
[2022-05-04] MEDS: CYCLOBENZAPRINE HCL 10 MG TAB PO SCH ×2 (06:03→14:12)
[2022-05-04] MEDS: HYDROcodone-ACET 10/325MG TAB PO PRN ×3 (06:03→16:50)
[2022-05-04] MEDS: InsuLIN REG 1unit/0.01ml Soln (100units/ml) SC SCH ×3 (06:07→16:56)
[2022-05-04] MEDS: ACCU-CHEK COMFORT CURVE STRIP VI SCH ×3 (06:13→16:50)
[2022-05-04] MEDS: cefTRIAXone 1GM/50ML D5W 50 ML IV SCH (08:51)
[2022-05-04 09:00] VITALS: BP 137/86
[2022-05-04] MEDS: ASPirin 81 mg TAB PO SCH (09:52)
[2022-05-04] MEDS: MORPHINE SULF 30 mg ER tab PO SCH (09:52)
[2022-05-04] MEDS: CLOPIDOGREL BISULFATE 75 MG TAB PO SCH (09:52)
[2022-05-04] MEDS: PANTOPRAZOLE 40 MG TAB PO SCH (09:53)
[2022-05-04] MEDS: AZITHROMYCIN 250 MG TAB PO SCH (09:53)
[2022-05-04] MEDS ORDERED: predniSONE 20 MG TAB PO SCH (10:00)
[2022-05-04 10:10] VITALS: BP 137/86
[2022-05-04 13:00] VITALS: BP 119/78
[2022-05-04 14:44] VITALS: BP 119/78
[2022-05-04] MEDS: IPRATROPIUM BROM 0.5 MG/2.5ML INH SOL NEB SCH ×2 (15:45→15:46)
[2022-05-04] MEDS: ALBUTEROL SULF 2.5 MG/0.5ML(0.5%) NEB SOLN NEB SCH (15:46)
[2022-05-04 17:00] VITALS: BP 130/67
== END 2022-05-04 18:05 | disposition home or self-care (01) | DRG 192 ==
LOC: EDBD 04:19 → ER 04:19 → TELE 11:29 → TELE-EAST 22:20 → EAST 05-03 03:13
PROVIDERS: ADMIT Nurse Practitioner Family; ATTEND Internal Medicine
DX: J44.1 Chronic obstructive pulmonary disease with (acute) exacerbation (principal); D72.829 Elevated white blood cell count, unspecified; S09.90XA Unspecified injury of head, initial encounter; E11.9 Type 2 diabetes mellitus without complications; G47.00 Insomnia, unspecified; G89.4 Chronic pain syndrome; F51.05 Insomnia due to other mental disorder; Y93.01 Activity, walking, marching and hiking; Z20.822 Contact with and (suspected) exposure to COVID-19; W18.39XA Other fall on same level, initial encounter; I10 Essential (primary) hypertension; I25.10 Atherosclerotic heart disease of native coronary artery without angina pectoris; I25.2 Old myocardial infarction; Z82.49 Family history of ischemic heart disease and other diseases of the circulatory system; Z87.891 Personal history of nicotine dependence; Z95.5 Presence of coronary angioplasty implant and graft; Y92.89 Other specified places as the place of occurrence of the external cause; Y99.8 Other external cause status
CPT/HCPCS: 36415; 70450; 71045; 71275; 73080; 73562; 80053; 81001; 82962; 83036; 83615; 83735; 83880; 84484; 85025; 85379; 87426; 87804; 93005; 93306; 94640; 96372; 96374; 96375; C9113; G0378; J0696; J1815; J2405

== ENCOUNTER 2022-06-23 06:36 | Emergency (ER) | payer OTHER, MEDICAID ==
[~2022-06-23] VITALS: Ht 172.7 cm; Wt 81.8 kg
[2022-06-23 07:46] VITALS: BP 164/82
[2022-06-23] MEDS ORDERED: HYDROcodone-ACET 10/325MG TAB PO ONE (08:00)
[2022-06-23] MEDS ORDERED: HYDR-4798 PO (08:21)
== END 2022-06-23 08:31 | disposition home or self-care (01) ==
LOC: ER 06:42
DX: S33.5XXA Sprain of ligaments of lumbar spine, initial encounter (principal); G89.29 Other chronic pain; M54.9 Dorsalgia, unspecified; I10 Essential (primary) hypertension; I25.2 Old myocardial infarction; I25.10 Atherosclerotic heart disease of native coronary artery without angina pectoris; E11.9 Type 2 diabetes mellitus without complications; J44.9 Chronic obstructive pulmonary disease, unspecified; Z87.891 Personal history of nicotine dependence; Z79.01 Long term (current) use of anticoagulants; Z79.82 Long term (current) use of aspirin; Z79.899 Other long term (current) drug therapy; Z88.1 Allergy status to other antibiotic agents; Z91.018 Allergy to other foods; X58.XXXA Exposure to other specified factors, initial encounter; Y93.89 Activity, other specified; Y92.89 Other specified places as the place of occurrence of the external cause; Y99.8 Other external cause status

== ENCOUNTER 2022-12-03 18:49 | Inpatient (IN) | payer OTHER, MEDICAID ==
[~2022-12-03] VITALS: Ht 170.2 cm; Wt 83.5 kg
[2022-12-03] MEDS ORDERED: IPRATROPIUM BROM 0.5 MG/2.5ML INH SOL NEB ONE (19:15)
[2022-12-03] MEDS ORDERED: methylPREDNISolone SOD SUCC 125 MG/2 ML VL IV ONE (19:15)
[2022-12-03] MEDS ORDERED: ALBUTEROL SULF 2.5 MG/0.5ML(0.5%) NEB SOLN NEB ONE (19:15)
[2022-12-03 19:38] LABS: Basophils # (auto) 0 10 ^3/uL (0-0.2); Basophils % (auto) 0.7 % (0.0-2.0); Eosinophils # (auto) 0.4 10 ^3/uL (0-0.8); Eosinophils % (auto) 6.2 % (0.0-7.0); Hematocrit 37.6 % (41.0-53.0); Hemoglobin 13.3 g/dL (13.5-17.5); Lymphocytes % (auto) 30.6 % (10.0-50.0); Mean Corpuscular Hemoglobin 32.4 pg (28.0-32.0); Mean Corpuscular Hgb Conc. 35.3 g/dL (32.0-36.0); Mean Corpuscular Volume 91.8 fL (80.0-100.0); Monocytes # (auto) 0.5 10 ^3/uL (0-1.3); Monocytes % (auto) 7.4 % (0.0-12.0); Neutrophils # (auto) 3.7 10 ^3/uL (1.6-8.6); Neutrophils % (auto) 55.1 % (37.0-80.0); Nucleated Red Blood Cells % 0.1 %; Red Blood Cells 4.09 10^6/uL (4.5-5.90); Red Cell Distribution Width 14.8 % (11.8-14.3); White Blood Cell 6.6 10^3/uL (4.4-10.8)
[2022-12-03] MEDS ORDERED: DexAMETHasone SOD PHOS 10MG/1ML VIAL INJ IV ONE (19:45)
[2022-12-03 20:44] LABS: Albumin 3.6 g/dL (3.4-5.0); Calcium 8.3 mg/dL (8.5-10.1); Potassium 3.8 mmol/L (3.5-5.1)
[2022-12-03 20:47] LABS: BUN/Creatinine Ratio 5.1 (10.0-20.0); Bilirubin, Total 0.1 mg/dL (0.2-1.0); Total Protein 6.8 g/dL (6.4-8.2)
[2022-12-03] MEDS ORDERED: HYDROcodone-ACET 10/325MG TAB PO ONE (21:15)
[2022-12-03] MEDS ORDERED: TEMAZEPAM 15 MG CAP PO PRN (22:00)
[2022-12-03] MEDS ORDERED: ONDANSETRON HCL 4 MG/2 ML VIAL IV PRN (22:00)
[2022-12-03] MEDS ORDERED: ACETAMINOPHEN 325 MG TAB PO PRN (22:00)
[2022-12-03] MEDS ORDERED: NITROGLYCERIN 0.4 MG SL TAB SL PRN (22:00)
[2022-12-03] MEDS ORDERED: IPRATROPIUM BROM 0.5 MG/2.5ML INH SOL NEB PRN (22:00)
[2022-12-03] MEDS ORDERED: DEXTROSE (50%) 50ML SYRG IV PRN (22:00)
[2022-12-03] MEDS ORDERED: MORPHINE SULFATE INJ 2 MG/ml SYRG IV PRN (22:00)
[2022-12-03] MEDS ORDERED: ALBUTEROL SULF 2.5 MG/0.5ML(0.5%) NEB SOLN NEB PRN (22:00)
[2022-12-03 22:10] VITALS: BP 152/84
[2022-12-04] MEDS: ACCU-CHEK COMFORT CURVE STRIP VI SCH ×4 (00:29→17:13)
[2022-12-04] MEDS: InsuLIN REG 1unit/0.01ml Soln (100units/ml) SC SCH ×4 (00:48→17:07)
[2022-12-04] MEDS ORDERED: GABAPENTIN 100 MG CAP PO ONE (03:45)
[2022-12-04 06:00] LABS: Basophils # (auto) 0 10 ^3/uL (0-0.2); Basophils % (auto) 0.1 % (0.0-2.0); Eosinophils # (auto) 0 10 ^3/uL (0-0.8); Eosinophils % (auto) 0.1 % (0.0-7.0); Hematocrit 36.9 % (41.0-53.0); Lymphocytes # (auto) 0.5 10 ^3/uL (0.4-5.4); Lymphocytes % (auto) 6.8 % (10.0-50.0); Mean Corpuscular Hemoglobin 32.8 pg (28.0-32.0); Mean Corpuscular Hgb Conc. 35.3 g/dL (32.0-36.0); Mean Corpuscular Volume 92.9 fL (80.0-100.0); Monocytes # (auto) 0.1 10 ^3/uL (0-1.3); Monocytes % (auto) 1.7 % (0.0-12.0); Neutrophils # (auto) 6.9 10 ^3/uL (1.6-8.6); Neutrophils % (auto) 91.3 % (37.0-80.0); Red Blood Cells 3.97 10^6/uL (4.5-5.90); Red Cell Distribution Width 15.1 % (11.8-14.3); White Blood Cell 7.5 10^3/uL (4.4-10.8)
[2022-12-04 06:34] LABS: BUN/Creatinine Ratio 7.6 (10.0-20.0); Calcium 8.8 mg/dL (8.5-10.1); Potassium 4.4 mmol/L (3.5-5.1)
[2022-12-04] MEDS: HYDROcodone-ACET 10/325MG TAB PO PRN ×3 (06:41→18:16)
[2022-12-04] MEDS: methylPREDNISolone SOD SUCC 40 MG/ML VL IV SCH ×2 (09:57→21:47)
[2022-12-04] MEDS: SERTRALINE HCL 50 MG TAB PO SCH (09:58)
[2022-12-04] MEDS: CLOPIDOGREL BISULFATE 75 MG TAB PO SCH (09:58)
[2022-12-04] MEDS: ENOXAPARIN SOD 40 MG/0.4 ML SYRINGE SC SCH (09:58)
[2022-12-04] MEDS: PANTOPRAZOLE 40 MG TAB PO SCH (09:58)
[2022-12-04] MEDS: METOPROLOL SUCCINATE XL 50 MG TAB PO SCH (09:59)
[2022-12-04] MEDS: risperiDONE 1 MG TAB PO SCH (09:59)
[2022-12-04] MEDS ORDERED: SERT-160 PO (11:27)
[2022-12-04] MEDS ORDERED: RISP2TAB62 PO (11:27)
[2022-12-04] MEDS ORDERED: QUET100T47 PO (11:27)
[2022-12-04] MEDS ORDERED: methylPREDNISolone SOD SUCC 40 MG/ML VL IV ONE (11:30)
[2022-12-04 11:40] VITALS: BP 126/77
[2022-12-04 16:21] VITALS: BP 112/44
[2022-12-04 16:26] VITALS: BP 112/44
[2022-12-04 16:35] VITALS: BP 100/57
[2022-12-04] MEDS ORDERED: RIZA10TA22 PO (16:42)
[2022-12-04] MEDS ORDERED: TAMS0.4C36 PO (16:42)
[2022-12-04] MEDS ORDERED: METO25TA93 PO (16:42)
[2022-12-04 17:54] VITALS: BP 111/75
[2022-12-04] MEDS ORDERED: TAMSULOSIN HYDROCHLORIDE 0.4 MG CAP PO SCH (18:00)
[2022-12-04 22:00] VITALS: BP 112/65
[2022-12-05] MEDS: InsuLIN REG 1unit/0.01ml Soln (100units/ml) SC SCH ×3 (00:51→11:46)
[2022-12-05 05:00] VITALS: BP 143/74
[2022-12-05] MEDS: ACCU-CHEK COMFORT CURVE STRIP VI SCH ×3 (05:59→11:45)
[2022-12-05] MEDS: HYDROcodone-ACET 10/325MG TAB PO PRN (05:59)
[2022-12-05 09:00] VITALS: BP 134/72
[2022-12-05] MEDS: methylPREDNISolone SOD SUCC 40 MG/ML VL IV SCH (09:05)
[2022-12-05] MEDS: risperiDONE 1 MG TAB PO SCH (09:06)
[2022-12-05] MEDS: ENOXAPARIN SOD 40 MG/0.4 ML SYRINGE SC SCH (09:06)
[2022-12-05] MEDS: SERTRALINE HCL 50 MG TAB PO SCH (09:06)
[2022-12-05] MEDS: PANTOPRAZOLE 40 MG TAB PO SCH (09:06)
[2022-12-05] MEDS: CLOPIDOGREL BISULFATE 75 MG TAB PO SCH (09:07)
[2022-12-05] MEDS: METOPROLOL SUCCINATE XL 50 MG TAB PO SCH (09:07)
[2022-12-05] MEDS ORDERED: methylPREDNISolone SOD SUCC 40 MG/ML VL IV SCH (10:00)
[2022-12-05] MEDS ORDERED: PRED20TA2 PO (10:40)
[2022-12-05] MEDS ORDERED: GABAPENTIN 300 MG CAP PO ONE (11:15)
[2022-12-05 12:30] VITALS: BP 133/72
== END 2022-12-05 15:21 | disposition home or self-care (01) | DRG 192 ==
LOC: ER 18:52 → TELE 22:04 → TELE-WESTW 12-04 11:02
PROVIDERS: ADMIT Nurse Practitioner; ATTEND Internal Medicine Pulmonary Disease
DX: J44.1 Chronic obstructive pulmonary disease with (acute) exacerbation (principal); E11.9 Type 2 diabetes mellitus without complications; I10 Essential (primary) hypertension; F41.9 Anxiety disorder, unspecified; E78.00 Pure hypercholesterolemia, unspecified; I25.10 Atherosclerotic heart disease of native coronary artery without angina pectoris; G89.4 Chronic pain syndrome; X08.8XXA Exposure to other specified smoke, fire and flames, initial encounter; Z82.49 Family history of ischemic heart disease and other diseases of the circulatory system; Z87.891 Personal history of nicotine dependence; Z79.899 Other long term (current) drug therapy
CPT/HCPCS: 36415; 71045; 71250; 80048; 80053; 82962; 84484; 85025; 93005; 94640; 94644; 96374; G0378; J1100; J1815

== ENCOUNTER 2022-12-14 19:09 | Emergency (ER) | payer OTHER ==
[~2022-12-14] VITALS: Ht 182.9 cm; Wt 90.0 kg
[~2022-12-14 19:09] MED LIST changes: +METO25TA93 PO; +PRED20TA2 PO; +QUET100T47 PO; +RISP2TAB62 PO; +RIZA10TA22 PO; +SERT-160 PO; +TAMS0.4C36 PO
[2022-12-14 20:09] LABS: Hematocrit 37.8 % (41.0-53.0); Hemoglobin 12.9 g/dL (13.5-17.5); Mean Corpuscular Hemoglobin 31.8 pg (28.0-32.0); Mean Corpuscular Hgb Conc. 34.3 g/dL (32.0-36.0); Mean Corpuscular Volume 92.9 fL (80.0-100.0); Red Blood Cells 4.07 10^6/uL (4.5-5.90); Red Cell Distribution Width 14.4 % (11.8-14.3); White Blood Cell 8.2 10^3/uL (4.4-10.8)
[2022-12-14 20:21] LABS: Albumin 3.7 g/dL (3.4-5.0); Calcium 8.3 mg/dL (8.5-10.1); Magnesium 2.5 mg/dL (1.6-2.6)
[2022-12-14 20:24] LABS: BUN/Creatinine Ratio 5.7 (10.0-20.0); Basophils % (manual) 0 (0.0-2.0); Bilirubin, Total 0.2 mg/dL (0.2-1.0); Blast Cells 0; Metamyelocytes % 0; Myelocytes % 0; Partial Thromboplastin Time 24.7 sec (24.6-33.4); Promyelocytes % 0; Reactive Lymphocytes 0; Total Protein 6.9 g/dL (6.4-8.2)
[2022-12-14] MEDS ORDERED: SODIUM CHLORIDE 0.9% 1,000 ML IV ONE (21:45)
[2022-12-14] MEDS ORDERED: IPRATROPIUM BROM 0.5 MG/2.5ML INH SOL NEB ONE (21:45)
[2022-12-14] MEDS ORDERED: INSULIN LISPRO (HUMAN) 100 UNITS/ML ML SC ONE (21:45)
[2022-12-14] MEDS ORDERED: ALBUTEROL SULF 2.5 MG/0.5ML(0.5%) NEB SOLN NEB ONE (21:45)
[2022-12-14 21:58] LABS: Band Neutrophils % (manual) 2; Eosinophils % (manual) 2 (0-7); Lymphocytes % (manual) 23 (10.0-50.0); Monocytes % (manual) 10 (0-12)
[2022-12-14 23:50] VITALS: BP 111/56
== END 2022-12-14 23:55 | disposition home or self-care (01) ==
LOC: ER 19:09 → EDBD 19:09 → ER 23:53
DX: R07.89 Other chest pain (principal); F41.8 Other specified anxiety disorders; T46.3X5A Adverse effect of coronary vasodilators, initial encounter; I10 Essential (primary) hypertension; I25.2 Old myocardial infarction; I25.10 Atherosclerotic heart disease of native coronary artery without angina pectoris; E78.5 Hyperlipidemia, unspecified; E11.9 Type 2 diabetes mellitus without complications; Z87.891 Personal history of nicotine dependence; Z79.82 Long term (current) use of aspirin; Z79.01 Long term (current) use of anticoagulants; Z79.899 Other long term (current) drug therapy; Z88.8 Allergy status to other drugs, medicaments and biological substances; Z91.018 Allergy to other foods; Y92.89 Other specified places as the place of occurrence of the external cause
CPT/HCPCS: 36415; 80053; 82962; 83735; 83880; 84484; 85007; 85027; 85610; 85730; 93005; 96372; 99284; J1815; J7644

== ENCOUNTER 2023-03-09 16:05 | Inpatient (IN) | payer OTHER ==
[~2023-03-09] VITALS: Ht 170.2 cm; Wt 85.1 kg
[2023-03-09] MEDS ORDERED: AZITHROMYCIN 500MG/ 250ML 250 ML IV ONE (16:30)
[2023-03-09] MEDS ORDERED: cefTRIAXone 1GM/50ML D5W 50 ML IV ONE (16:30)
[2023-03-09] MEDS ORDERED: IPRATROPIUM BROM 0.5 MG/2.5ML INH SOL HHN ONE (16:30)
[2023-03-09] MEDS ORDERED: ASPirin 81 mg TAB PO ONE (16:30)
[2023-03-09] MEDS ORDERED: SODIUM CHLORIDE 0.9% 1,000 ML IV ONE (16:30)
[2023-03-09] MEDS ORDERED: methylPREDNISolone SOD SUCC 40 MG/ML VL IV ONE (16:30)
[2023-03-09] MEDS ORDERED: PANTOPRAZOLE 40 MG/10 ML VIAL INJ IV ONE (16:30)
[2023-03-09] MEDS ORDERED: ACETAMINOPHEN 325 MG TAB PO ONE (16:30)
[2023-03-09] MEDS ORDERED: ALBUTEROL SULF 2.5 MG/0.5ML(0.5%) NEB SOLN HHN ONE (16:30)
[2023-03-09 16:39] LABS: Base Excess -0.9 mmol/L (-2.0-2.0)
[2023-03-09 16:41] LABS: Basophils # (auto) 0.1 10 ^3/uL (0-0.2); Basophils % (auto) 0.8 % (0.0-2.0); Eosinophils # (auto) 0.5 10 ^3/uL (0-0.8); Eosinophils % (auto) 8.7 % (0.0-7.0); Hematocrit 42.1 % (41.0-53.0); Hemoglobin 14.5 g/dL (13.5-17.5); Lymphocytes # (auto) 2.5 10 ^3/uL (0.4-5.4); Lymphocytes % (auto) 39.5 % (10.0-50.0); Mean Corpuscular Hemoglobin 31.5 pg (28.0-32.0); Mean Corpuscular Hgb Conc. 34.4 g/dL (32.0-36.0); Mean Corpuscular Volume 91.4 fL (80.0-100.0); Monocytes # (auto) 0.5 10 ^3/uL (0-1.3); Monocytes % (auto) 7.7 % (0.0-12.0); Neutrophils # (auto) 2.7 10 ^3/uL (1.6-8.6); Neutrophils % (auto) 43.3 % (37.0-80.0); Nucleated Red Blood Cells % 0.2 %; Red Blood Cells 4.61 10^6/uL (4.5-5.90); Red Cell Distribution Width 13.9 % (11.8-14.3); White Blood Cell 6.2 10^3/uL (4.4-10.8)
[2023-03-09 16:58] LABS: INR 1.11 (0.9-1.15); Partial Thromboplastin Time 26.1 SEC (24.5-34.5); Prothrombin Time 11.6 sec (9.3-11.8)
[2023-03-09] MEDS ORDERED: ONDANSETRON HCL 4 MG/2 ML VIAL IV ONE (17:00)
[2023-03-09] MEDS ORDERED: guaiFENesin-DM 100/10mg/5ml SYR PO ONE (17:00)
[2023-03-09] MEDS ORDERED: ALBUTEROL SULF 2.5 MG/0.5ML(0.5%) NEB SOLN NEB ONE (17:00)
[2023-03-09 17:06] LABS: Alanine Aminotransferase 14 U/L (7-40); Albumin 4.7 g/dL (3.2-4.8); Alkaline Phosphatase 64 U/L (46-116); Anion Gap 7.9 (5-15); Aspartate Aminotransferase 11 U/L (13-40); Blood Urea Nitrogen 6 mg/dL (9-23); Calcium 9.8 mg/dL (8.5-10.1); Carbon Dioxide 27.1 mmol/L (20-30); Chloride 103 mmol/L (98-107); Glucose 226 mg/dL (74-106); Sodium 138 mmol/L (136-145)
[2023-03-09 17:07] LABS: Bilirubin, Total 0.3 mg/dL (0.2-1.0); Total Protein 7.1 g/dL (5.7-8.2)
[2023-03-09 17:27] LABS: Lactic Acid w/Reflex 2.6 mmol/L (0.4-2.0)
[2023-03-09] MEDS ORDERED: HYDROcodone-ACET 5/325MG TAB PO ONE (18:30)
[2023-03-09] MEDS ORDERED: MORPHINE SULFATE INJ 2 MG/ml SYRG IV PRN (20:45)
[2023-03-09] MEDS ORDERED: TEMAZEPAM 15 MG CAP PO PRN (20:45)
[2023-03-09] MEDS ORDERED: IPRATROPIUM BROM 0.5 MG/2.5ML INH SOL NEB PRN (20:45)
[2023-03-09] MEDS ORDERED: NITROGLYCERIN 0.4 MG SL TAB SL PRN (20:45)
[2023-03-09] MEDS ORDERED: DEXTROSE (50%) 50ML SYRG IV PRN (20:45)
[2023-03-09] MEDS ORDERED: ONDANSETRON HCL 4 MG/2 ML VIAL IV PRN (20:45)
[2023-03-09] MEDS ORDERED: ACETAMINOPHEN 325 MG TAB PO PRN (20:45)
[2023-03-09] MEDS ORDERED: ALBUTEROL SULF 2.5 MG/0.5ML(0.5%) NEB SOLN NEB PRN (20:45)
[2023-03-09 23:01] VITALS: BP 138/86; PULSE 91; RESP 19; TEMP 97.6; O2SAT 96
[2023-03-10] VITALS (16 sets, daily range): BP systolic 100–131; BP diastolic 54–82; PULSE 84–105; RESP 16–20; TEMP 97.7–98.5; O2SAT 93–99
[2023-03-10] MEDS: ACCU-CHEK COMFORT CURVE STRIP VI SCH ×5 (00:01→21:50)
[2023-03-10] MEDS: InsuLIN REG 1unit/0.01ml Soln (100units/ml) SC SCH ×4 (00:11→16:41)
[2023-03-10] MEDS: HYDROcodone-ACET 10/325MG TAB PO PRN ×3 (03:14→18:32)
[2023-03-10] MEDS ORDERED: ALBU108A5 INH (03:44)
[2023-03-10] MEDS ORDERED: FLUT1AER17 INH (03:44)
[2023-03-10] MEDS ORDERED: FLUT50SP NAS (03:44)
[2023-03-10] MEDS ORDERED: OMEP1CAP70 PO (03:44)
[2023-03-10] MEDS ORDERED: LORA-483 PO (03:44)
[2023-03-10] MEDS ORDERED: BUSP10TA90 PO (03:46)
[2023-03-10 06:02] LABS: Chloride 103 mmol/L (98-107); Potassium 4.5 mmol/L (3.5-5.1); Sodium 136 mmol/L (136-145)
[2023-03-10 06:03] LABS: Anion Gap 8.1 (5-15); Calcium 9.7 mg/dL (8.5-10.1); Carbon Dioxide 24.9 mmol/L (20-30)
[2023-03-10 06:08] LABS: BUN/Creatinine Ratio 7.1 (10.0-20.0); Blood Urea Nitrogen 8 mg/dL (9-23); Glucose 267 mg/dL (74-106)
[2023-03-10 06:20] LABS: Basophils # (auto) 0 10 ^3/uL (0-0.2); Basophils % (auto) 0.1 % (0.0-2.0); Eosinophils # (auto) 0 10 ^3/uL (0-0.8); Eosinophils % (auto) 0.1 % (0.0-7.0); Hematocrit 39.7 % (41.0-53.0); Hemoglobin 13.5 g/dL (13.5-17.5); Lymphocytes # (auto) 0.6 10 ^3/uL (0.4-5.4); Mean Corpuscular Hemoglobin 31.4 pg (28.0-32.0); Mean Corpuscular Hgb Conc. 34.2 g/dL (32.0-36.0); Mean Corpuscular Volume 92.1 fL (80.0-100.0); Monocytes # (auto) 0.1 10 ^3/uL (0-1.3); Monocytes % (auto) 1.9 % (0.0-12.0); Neutrophils # (auto) 5.7 10 ^3/uL (1.6-8.6); Neutrophils % (auto) 88.9 % (37.0-80.0); Nucleated Red Blood Cells % 0.1 %; Red Blood Cells 4.31 10^6/uL (4.5-5.90); White Blood Cell 6.4 10^3/uL (4.4-10.8)
[2023-03-10] MEDS: ENOXAPARIN SOD 40 MG/0.4 ML SYRINGE SC SCH (09:36)
[2023-03-10] MEDS: CLOPIDOGREL BISULFATE 75 MG TAB PO SCH (09:36)
[2023-03-10] MEDS: SERTRALINE HCL 50 MG TAB PO SCH (09:36)
[2023-03-10] MEDS: METOPROLOL SUCCINATE XL 50 MG TAB PO SCH (09:37)
[2023-03-10] MEDS: PANTOPRAZOLE 40 MG TAB PO SCH (09:37)
[2023-03-10] MEDS: ISOSORBIDE MONONITRATE ER 60 MG TAB PO SCH (09:38)
[2023-03-10] MEDS: ASPirin 81 mg TAB PO SCH (09:38)
[2023-03-10 09:58] LABS: Urine WBC None Seen /hpf (0 - 3)
[2023-03-10 10:06] LABS: Urine Bacteria NONE SEEN /hpf (None Seen); Urine Blood Negative /uL (Negative); Urine Clarity Clear (Clear); Urine Color Colorless (Yellow); Urine Protein, UAD Negative (Negative); Urine Specific Gravity 1.014 (1.001-1.035); Urine Urobilinogen Normal (Negative)
[2023-03-10 10:35] LABS: Amphetamine Screen, Urine Neg (NEGATIVE); Barbiturate Scree,Urine Neg (NEGATIVE); Benzodiazephine Screen, Urine Neg (NEGATIVE); Cannabinoid Screen, Urine Neg (NEGATIVE); Cocaine Screen, Urine Neg (NEGATIVE); Opiate Scree,Urine Pos (NEGATIVE); Phencyclidine Screen, Urine Neg (NEGATIVE)
[2023-03-10] MEDS ORDERED: methylPREDNISolone SOD SUCC 40 MG/ML VL IV ONE (11:45)
[2023-03-10] MEDS ORDERED: DEXTROSE (50%) 50ML SYRG IV PRN (11:45)
[2023-03-10] MEDS: AZITHROMYCIN 500MG/ 250ML 250 ML IV SCH (13:50)
[2023-03-10] MEDS: cefTRIAXone 1GM/50ML D5W 50 ML IV SCH (13:51)
[2023-03-10] MEDS ORDERED: busPIRone HCL 10 MG TAB PO PRN (15:15)
[2023-03-10] MEDS: ALBUTEROL SULF 2.5 MG/0.5ML(0.5%) NEB SOLN NEB SCH ×3 (15:28→22:50)
[2023-03-10] MEDS: IPRATROPIUM BROM 0.5 MG/2.5ML INH SOL NEB SCH ×2 (15:28→19:30)
[2023-03-10] MEDS: TAMSULOSIN HYDROCHLORIDE 0.4 MG CAP PO SCH (18:32)
[2023-03-10] MEDS: CYCLOBENZAPRINE HCL 10 MG TAB PO SCH (21:49)
[2023-03-10] MEDS: QUEtiapine FUMARATE 100 MG TAB PO SCH (21:49)
[2023-03-10] MEDS: GABAPENTIN 300 MG CAP PO SCH (21:49)
[2023-03-10] MEDS: ATORVASTATIN 20 MG TAB PO SCH (21:49)
[2023-03-10] MEDS: methylPREDNISolone SOD SUCC 40 MG/ML VL IV SCH (21:49)
[2023-03-10] MEDS ORDERED: InsuLIN REG 1unit/0.01ml Soln (100units/ml) SC SCH (22:00)
[2023-03-11] VITALS (16 sets, daily range): BP systolic 97–116; BP diastolic 50–63; PULSE 80–99; RESP 16–20; TEMP 97.6–98.3; O2SAT 92–100
[2023-03-11] MEDS: ALBUTEROL SULF 2.5 MG/0.5ML(0.5%) NEB SOLN NEB SCH ×6 (02:00→22:00)
[2023-03-11] MEDS: IPRATROPIUM BROM 0.5 MG/2.5ML INH SOL NEB SCH ×5 (02:00→19:03)
[2023-03-11] MEDS: HYDROcodone-ACET 10/325MG TAB PO PRN ×3 (03:55→21:19)
[2023-03-11] MEDS: CYCLOBENZAPRINE HCL 10 MG TAB PO SCH ×3 (06:00→21:18)
[2023-03-11] MEDS: ACCU-CHEK COMFORT CURVE STRIP VI SCH ×4 (06:00→21:19)
[2023-03-11] MEDS: GABAPENTIN 300 MG CAP PO SCH ×3 (06:00→21:19)
[2023-03-11 06:02] LABS: Basophils # (auto) 0 10 ^3/uL (0-0.2); Basophils % (auto) 0.2 % (0.0-2.0); Eosinophils # (auto) 0 10 ^3/uL (0-0.8); Hematocrit 37.4 % (41.0-53.0); Hemoglobin 12.5 g/dL (13.5-17.5); Lymphocytes # (auto) 0.8 10 ^3/uL (0.4-5.4); Lymphocytes % (auto) 6.6 % (10.0-50.0); Mean Corpuscular Hemoglobin 30.8 pg (28.0-32.0); Mean Corpuscular Hgb Conc. 33.4 g/dL (32.0-36.0); Mean Corpuscular Volume 92.2 fL (80.0-100.0); Monocytes # (auto) 0.4 10 ^3/uL (0-1.3); Monocytes % (auto) 3.3 % (0.0-12.0); Neutrophils # (auto) 10.9 10 ^3/uL (1.6-8.6); Neutrophils % (auto) 89.9 % (37.0-80.0); Nucleated Red Blood Cells % 0.1 %; Red Blood Cells 4.06 10^6/uL (4.5-5.90); Red Cell Distribution Width 14.2 % (11.8-14.3); White Blood Cell 12.1 10^3/uL (4.4-10.8)
[2023-03-11] MEDS: InsuLIN REG 1unit/0.01ml Soln (100units/ml) SC SCH ×4 (06:07→21:21)
[2023-03-11 06:41] LABS: Anion Gap 7.5 (5-15); Calcium 9.5 mg/dL (8.7-10.4); Carbon Dioxide 25.5 mmol/L (20-30); Chloride 104 mmol/L (98-107); Potassium 4.5 mmol/L (3.5-5.1); Sodium 137 mmol/L (136-145)
[2023-03-11 06:47] LABS: BUN/Creatinine Ratio 12.5 (10.0-20.0); Blood Urea Nitrogen 14 mg/dL (9-23); Glucose 327 mg/dL (74-106)
[2023-03-11] MEDS ORDERED: DEXTROSE (50%) 50ML SYRG IV PRN (07:45)
[2023-03-11] MEDS: cefTRIAXone 1GM/50ML D5W 50 ML IV SCH (09:08)
[2023-03-11] MEDS: PANTOPRAZOLE 40 MG TAB PO SCH (09:09)
[2023-03-11] MEDS: CLOPIDOGREL BISULFATE 75 MG TAB PO SCH (09:09)
[2023-03-11] MEDS: METOPROLOL SUCCINATE XL 50 MG TAB PO SCH (09:09)
[2023-03-11] MEDS: ASPirin 81 mg TAB PO SCH (09:10)
[2023-03-11] MEDS: SERTRALINE HCL 50 MG TAB PO SCH (09:10)
[2023-03-11] MEDS: ISOSORBIDE MONONITRATE ER 60 MG TAB PO SCH (09:10)
[2023-03-11] MEDS: ENOXAPARIN SOD 40 MG/0.4 ML SYRINGE SC SCH (09:11)
[2023-03-11] MEDS: methylPREDNISolone SOD SUCC 40 MG/ML VL IV SCH ×2 (10:25→21:18)
[2023-03-11] MEDS: AZITHROMYCIN 500MG/ 250ML 250 ML IV SCH (10:25)
[2023-03-11] MEDS ORDERED: INSULIN LANTUS (GLARGINE) 1 /0.01ml (100units/ml) SC ONE (14:00)
[2023-03-11 16:24] LABS: COVID19 ANTIGEN SOFIA FIA NEGATIVE (NEGATIVE)
[2023-03-11] MEDS: TAMSULOSIN HYDROCHLORIDE 0.4 MG CAP PO SCH (18:13)
[2023-03-11 20:27] LABS: Rapid Influenza A Negative (Negative); Rapid Influenza B Negative (Negative)
[2023-03-11] MEDS: QUEtiapine FUMARATE 100 MG TAB PO SCH (21:19)
[2023-03-11] MEDS: ATORVASTATIN 20 MG TAB PO SCH (21:19)
[2023-03-11] MEDS: INSULIN LANTUS (GLARGINE) 1 /0.01ml (100units/ml) SC SCH (21:20)
[2023-03-12] VITALS (18 sets, daily range): BP systolic 108–122; BP diastolic 59–70; PULSE 62–96; RESP 16–19; TEMP 97.9–98.5; O2SAT 1–98
[2023-03-12] MEDS: ALBUTEROL SULF 2.5 MG/0.5ML(0.5%) NEB SOLN NEB SCH ×6 (02:00→22:00)
[2023-03-12] MEDS: IPRATROPIUM BROM 0.5 MG/2.5ML INH SOL NEB SCH ×5 (02:00→19:06)
[2023-03-12] MEDS: CYCLOBENZAPRINE HCL 10 MG TAB PO SCH ×3 (05:47→21:04)
[2023-03-12] MEDS: GABAPENTIN 300 MG CAP PO SCH ×3 (05:47→21:04)
[2023-03-12] MEDS: ACCU-CHEK COMFORT CURVE STRIP VI SCH ×4 (05:47→21:05)
[2023-03-12] MEDS: HYDROcodone-ACET 10/325MG TAB PO PRN ×3 (05:47→23:10)
[2023-03-12] MEDS: InsuLIN REG 1unit/0.01ml Soln (100units/ml) SC SCH ×4 (05:53→21:12)
[2023-03-12 06:16] LABS: Anion Gap 5.9 (5-15); Carbon Dioxide 29.1 mmol/L (20-30); Chloride 103 mmol/L (98-107); Potassium 4.5 mmol/L (3.5-5.1); Sodium 138 mmol/L (136-145)
[2023-03-12 06:17] LABS: Calcium 9.3 mg/dL (8.5-10.1)
[2023-03-12 06:22] LABS: Blood Urea Nitrogen 15 mg/dL (9-23); Glucose 299 mg/dL (74-106)
[2023-03-12 06:26] LABS: Basophils # (auto) 0 10 ^3/uL (0-0.2); Basophils % (auto) 0.1 % (0.0-2.0); Eosinophils # (auto) 0 10 ^3/uL (0-0.8); Hematocrit 36.3 % (41.0-53.0); Hemoglobin 12.4 g/dL (13.5-17.5); Lymphocytes # (auto) 0.9 10 ^3/uL (0.4-5.4); Lymphocytes % (auto) 7.2 % (10.0-50.0); Mean Corpuscular Hemoglobin 31.3 pg (28.0-32.0); Mean Corpuscular Hgb Conc. 34.1 g/dL (32.0-36.0); Mean Corpuscular Volume 91.9 fL (80.0-100.0); Monocytes # (auto) 0.4 10 ^3/uL (0-1.3); Monocytes % (auto) 3.3 % (0.0-12.0); Neutrophils # (auto) 11.6 10 ^3/uL (1.6-8.6); Neutrophils % (auto) 89.4 % (37.0-80.0); Nucleated Red Blood Cells % 0.1 %; Red Blood Cells 3.94 10^6/uL (4.5-5.90)
[2023-03-12 06:39] LABS: BUN/Creatinine Ratio 13.9 (10.0-20.0)
[2023-03-12] MEDS: cefTRIAXone 1GM/50ML D5W 50 ML IV SCH (08:27)
[2023-03-12] MEDS: INSULIN LANTUS (GLARGINE) 1 /0.01ml (100units/ml) SC SCH ×2 (08:28→21:13)
[2023-03-12] MEDS: methylPREDNISolone SOD SUCC 40 MG/ML VL IV SCH ×2 (09:30→21:04)
[2023-03-12] MEDS: AZITHROMYCIN 500MG/ 250ML 250 ML IV SCH (09:31)
[2023-03-12] MEDS: CLOPIDOGREL BISULFATE 75 MG TAB PO SCH (09:31)
[2023-03-12] MEDS: ASPirin 81 mg TAB PO SCH (09:31)
[2023-03-12] MEDS: PANTOPRAZOLE 40 MG TAB PO SCH (09:31)
[2023-03-12] MEDS: ISOSORBIDE MONONITRATE ER 60 MG TAB PO SCH (09:32)
[2023-03-12] MEDS: SERTRALINE HCL 50 MG TAB PO SCH (09:32)
[2023-03-12] MEDS: METOPROLOL SUCCINATE XL 50 MG TAB PO SCH (09:33)
[2023-03-12] MEDS: ENOXAPARIN SOD 40 MG/0.4 ML SYRINGE SC SCH (09:45)
[2023-03-12] MEDS: TAMSULOSIN HYDROCHLORIDE 0.4 MG CAP PO SCH (17:42)
[2023-03-12] MEDS: ATORVASTATIN 20 MG TAB PO SCH (21:04)
[2023-03-12] MEDS: QUEtiapine FUMARATE 100 MG TAB PO SCH (21:04)
[2023-03-13] VITALS (14 sets, daily range): BP systolic 119–134; BP diastolic 66–83; PULSE 72–97; RESP 17–24; TEMP 97.6–98.3; O2SAT 92–100
[2023-03-13] MEDS: IPRATROPIUM BROM 0.5 MG/2.5ML INH SOL NEB SCH ×3 (02:00→10:19)
[2023-03-13] MEDS: ALBUTEROL SULF 2.5 MG/0.5ML(0.5%) NEB SOLN NEB SCH ×3 (02:00→10:19)
[2023-03-13] MEDS: GABAPENTIN 300 MG CAP PO SCH ×2 (06:19→15:59)
[2023-03-13] MEDS: CYCLOBENZAPRINE HCL 10 MG TAB PO SCH ×2 (06:19→15:59)
[2023-03-13] MEDS: ACCU-CHEK COMFORT CURVE STRIP VI SCH ×3 (06:19→17:24)
[2023-03-13] MEDS: INSULIN LANTUS (GLARGINE) 1 /0.01ml (100units/ml) SC SCH (06:22)
[2023-03-13] MEDS: InsuLIN REG 1unit/0.01ml Soln (100units/ml) SC SCH ×3 (06:23→17:33)
[2023-03-13] MEDS ORDERED: INSULIN LANTUS (GLARGINE) 1 /0.01ml (100units/ml) SC SCH (08:00)
[2023-03-13] MEDS: cefTRIAXone 1GM/50ML D5W 50 ML IV SCH (08:23)
[2023-03-13] MEDS: HYDROcodone-ACET 10/325MG TAB PO PRN ×2 (08:23→16:00)
[2023-03-13] MEDS: SERTRALINE HCL 50 MG TAB PO SCH (10:09)
[2023-03-13] MEDS: methylPREDNISolone SOD SUCC 40 MG/ML VL IV SCH (10:09)
[2023-03-13] MEDS: METOPROLOL SUCCINATE XL 50 MG TAB PO SCH (10:10)
[2023-03-13] MEDS: ISOSORBIDE MONONITRATE ER 60 MG TAB PO SCH (10:11)
[2023-03-13] MEDS: PANTOPRAZOLE 40 MG TAB PO SCH (10:11)
[2023-03-13] MEDS: AZITHROMYCIN 500MG/ 250ML 250 ML IV SCH (10:11)
[2023-03-13] MEDS: CLOPIDOGREL BISULFATE 75 MG TAB PO SCH (10:11)
[2023-03-13] MEDS: ASPirin 81 mg TAB PO SCH (10:11)
[2023-03-13] MEDS ORDERED: AZITTAB PO (12:53)
[2023-03-13] MEDS ORDERED: METH4PAK PO (12:53)
[2023-03-13] MEDS: TAMSULOSIN HYDROCHLORIDE 0.4 MG CAP PO SCH (17:33)
== END 2023-03-13 17:40 | disposition home or self-care (01) | DRG 177 ==
LOC: ER 16:05 → TELE 20:44 → TELE-CENTR 03-10 02:22
PROVIDERS: ADMIT Internal Medicine Geriatric Medicine; ATTEND Student in an Organized Health Care Education/Training Program
DX: J15.6 Pneumonia due to other Gram-negative bacteria (principal); J96.21 Acute and chronic respiratory failure with hypoxia; J44.1 Chronic obstructive pulmonary disease with (acute) exacerbation; J44.0 Chronic obstructive pulmonary disease with (acute) lower respiratory infection; E11.65 Type 2 diabetes mellitus with hyperglycemia; F32.A Depression, unspecified; I10 Essential (primary) hypertension; N40.0 Benign prostatic hyperplasia without lower urinary tract symptoms; Z20.822 Contact with and (suspected) exposure to COVID-19; G47.33 Obstructive sleep apnea (adult) (pediatric); I25.10 Atherosclerotic heart disease of native coronary artery without angina pectoris; F20.9 Schizophrenia, unspecified; F41.9 Anxiety disorder, unspecified; G89.29 Other chronic pain; E66.8 Other obesity; Z91.148 Patient's other noncompliance with medication regimen for other reason; Z88.6 Allergy status to analgesic agent; Z88.8 Allergy status to other drugs, medicaments and biological substances; Z68.29 Body mass index [BMI] 29.0-29.9, adult; S92.351A Displaced fracture of fifth metatarsal bone, right foot, initial encounter for closed fracture; W18.39XA Other fall on same level, initial encounter; Y93.89 Activity, other specified; Y92.89 Other specified places as the place of occurrence of the external cause; Y99.8 Other external cause status
CPT/HCPCS: 36415; 36600; 71046; 73630; 80048; 80053; 80307; 80320; 81001; 82805; 82962; 83036; 83605; 83735; 83880; 84443; 84484; 85025; 85379; 85610; 85730; 87040; 87070; 87081; 87205; 87426; 87804; 93005; 94640; 96365; 96375; C9113; G0378; J0696; J1815

== ENCOUNTER 2023-03-22 21:58 | Emergency (ER) | payer OTHER ==
[~2023-03-22] VITALS: Ht 170.2 cm; Wt 84.7 kg
[~2023-03-22 21:58] MED LIST changes: +ALBU108A5 INH; +AZITTAB PO; +BUSP10TA90 PO; +FLUT1AER17 INH; +FLUT50SP NAS; +LORA-483 PO; +METH4PAK PO; +OMEP1CAP70 PO; -POM
[2023-03-22 22:10] VITALS: BP 145/79; RESP 22; O2SAT 96
[2023-03-22 22:22] VITALS: PULSE 103
[2023-03-22 22:56] LABS: Basophils # (auto) 0.1 10 ^3/uL (0-0.2); Basophils % (auto) 0.9 % (0.0-2.0); Eosinophils # (auto) 0.5 10 ^3/uL (0-0.8); Eosinophils % (auto) 6.1 % (0.0-7.0); Hematocrit 37.6 % (41.0-53.0); Hemoglobin 12.9 g/dL (13.5-17.5); Lymphocytes # (auto) 2.9 10 ^3/uL (0.4-5.4); Lymphocytes % (auto) 33.1 % (10.0-50.0); Mean Corpuscular Hemoglobin 31.5 pg (28.0-32.0); Mean Corpuscular Hgb Conc. 34.5 g/dL (32.0-36.0); Mean Corpuscular Volume 91.4 fL (80.0-100.0); Monocytes # (auto) 0.7 10 ^3/uL (0-1.3); Monocytes % (auto) 8.4 % (0.0-12.0); Neutrophils # (auto) 4.5 10 ^3/uL (1.6-8.6); Neutrophils % (auto) 51.5 % (37.0-80.0); Nucleated Red Blood Cells % 0.1 %; Red Blood Cells 4.11 10^6/uL (4.5-5.90); Red Cell Distribution Width 13.9 % (11.8-14.3); White Blood Cell 8.8 10^3/uL (4.4-10.8)
[2023-03-22 23:11] LABS: INR 1.05 (0.9-1.15); Partial Thromboplastin Time 24.6 SEC (24.5-34.5)
[2023-03-22 23:12] LABS: Urine Bacteria NONE SEEN /hpf (None Seen); Urine Blood Negative /uL (Negative); Urine Clarity Clear (Clear); Urine Color Colorless (Yellow); Urine Protein, UAD Negative (Negative); Urine Specific Gravity 1.026 (1.001-1.035); Urine Urobilinogen Normal (Negative); Urine WBC <1 /hpf (0 - 3)
[2023-03-23 02:08] LABS: Alanine Aminotransferase 30 U/L (7-40); Alkaline Phosphatase 60 U/L (46-116); Anion Gap 9 (5-15); Calcium 9.2 mg/dL (8.7-10.4); Carbon Dioxide 25 mmol/L (20-30); Chloride 103 mmol/L (98-107); Glucose 270 mg/dL (74-106); Magnesium 1.6 mg/dL (1.6-2.6); Potassium 3.6 mmol/L (3.5-5.1); Sodium 137 mmol/L (136-145)
[2023-03-23 02:09] LABS: Aspartate Aminotransferase 14 U/L (13-40); Bilirubin, Total 0.4 mg/dL (0.2-1.0)
[2023-03-23 02:16] LABS: BUN/Creatinine Ratio 4.1 (10.0-20.0); Blood Urea Nitrogen < 5 mg/dL (9-23)
[2023-03-23 03:51] LABS: Albumin 4.4 g/dL (3.2-4.8)
== END 2023-03-23 00:46 | disposition left against medical advice (07) ==
LOC: ER 21:58
DX: R06.02 Shortness of breath (principal); R05.9 Cough, unspecified; Z53.21 Procedure and treatment not carried out due to patient leaving prior to being seen by health care provider; Z79.899 Other long term (current) drug therapy
CPT/HCPCS: 36415; 71045; 80053; 81001; 82962; 83735; 83880; 84484; 85025; 85610; 85730; 93005

== ENCOUNTER 2023-08-02 13:37 | Emergency (ER) | payer OTHER, MEDICAID ==
[~2023-08-02] VITALS: Ht 172.7 cm; Wt 81.8 kg
[2023-08-02 14:00] LABS: Basophils # (auto) 0.1 10 ^3/uL (0-0.2); Basophils % (auto) 0.5 % (0.0-2.0); Eosinophils # (auto) 0.4 10 ^3/uL (0-0.8); Eosinophils % (auto) 3.7 % (0.0-7.0); Hematocrit 39.9 % (41.0-53.0); Hemoglobin 13.5 g/dL (13.5-17.5); Lymphocytes # (auto) 2.3 10 ^3/uL (0.4-5.4); Lymphocytes % (auto) 21.8 % (10.0-50.0); Mean Corpuscular Hemoglobin 31.4 pg (28.0-32.0); Mean Corpuscular Hgb Conc. 33.8 g/dL (32.0-36.0); Monocytes # (auto) 0.8 10 ^3/uL (0-1.3); Monocytes % (auto) 7.6 % (0.0-12.0); Neutrophils # (auto) 6.9 10 ^3/uL (1.6-8.6); Neutrophils % (auto) 66.4 % (37.0-80.0); Nucleated Red Blood Cells % 0.1 %; Red Blood Cells 4.29 10^6/uL (4.5-5.90); Red Cell Distribution Width 14.2 % (11.8-14.3); White Blood Cell 10.4 10^3/uL (4.4-10.8)
[2023-08-02] MEDS ORDERED: IPRATROPIUM BROM 0.5 MG/2.5ML INH SOL HHN ONE (14:00)
[2023-08-02] MEDS ORDERED: ALBUTEROL SULF 2.5 MG/0.5ML(0.5%) NEB SOLN HHN ONE (14:00)
[2023-08-02 14:12] LABS: INR 1.12 (0.9-1.15); Partial Thromboplastin Time 25.2 SEC (24.5-34.5); Prothrombin Time 11.7 sec (9.3-11.8)
[2023-08-02 14:18] LABS: Alanine Aminotransferase 30 U/L (7-40); Albumin 4.6 g/dL (3.2-4.8); Alkaline Phosphatase 67 U/L (46-116); Anion Gap 5 (5-15); Aspartate Aminotransferase 34 U/L (13-40); BUN/Creatinine Ratio 4.1 (10.0-20.0); Bilirubin, Total 0.4 mg/dL (0.2-1.0); Blood Urea Nitrogen < 5 mg/dL (9-23); Calcium 9.2 mg/dL (8.7-10.4); Carbon Dioxide 27 mmol/L (20-30); Chloride 105 mmol/L (98-107); Glucose 164 mg/dL (74-106); Magnesium 1.8 mg/dL (1.6-2.6); Potassium 3.9 mmol/L (3.5-5.1); Sodium 137 mmol/L (136-145); Total Protein 7.1 g/dL (5.7-8.2)
[2023-08-02 14:27] LABS: Base Excess -1.1 mmol/L (-2.0-2.0)
[2023-08-02 15:12] LABS: Urine Bacteria NONE SEEN /hpf (None Seen); Urine Blood Negative /uL (Negative); Urine Clarity Clear (Clear); Urine Color Colorless (Yellow); Urine Mucus FEW (None Seen); Urine Protein, UAD Negative (Negative); Urine Specific Gravity 1.006 (1.001-1.035); Urine Urobilinogen Normal (Negative); Urine WBC <1 /hpf (0 - 3); Urine pH 5.5 (5.0-8.0)
[2023-08-02 15:18] LABS: Amphetamine Screen, Urine Neg (NEGATIVE); Barbiturate Scree,Urine Neg (NEGATIVE); Benzodiazephine Screen, Urine Neg (NEGATIVE); Cannabinoid Screen, Urine Neg (NEGATIVE); Cocaine Screen, Urine Neg (NEGATIVE); Opiate Scree,Urine Pos (NEGATIVE); Phencyclidine Screen, Urine Neg (NEGATIVE)
[2023-08-02 16:38] VITALS: BP 138/82; PULSE 92; RESP 17; TEMP 98; O2SAT 95
== END 2023-08-02 16:39 | disposition home or self-care (01) ==
LOC: ER 13:37
DX: J44.9 Chronic obstructive pulmonary disease, unspecified (principal); R06.00 Dyspnea, unspecified; I10 Essential (primary) hypertension; E11.9 Type 2 diabetes mellitus without complications; E78.5 Hyperlipidemia, unspecified; I25.2 Old myocardial infarction; I25.10 Atherosclerotic heart disease of native coronary artery without angina pectoris; F41.9 Anxiety disorder, unspecified; Z98.890 Other specified postprocedural states; Z87.891 Personal history of nicotine dependence; Z88.8 Allergy status to other drugs, medicaments and biological substances; Z79.899 Other long term (current) drug therapy; Z91.011 Allergy to milk products
CPT/HCPCS: 36415; 36600; 71045; 80053; 80307; 81001; 82805; 83735; 83880; 84484; 85025; 85610; 85730; 87040; 93005; 94640; 99285; J7644